=== PATIENT | female | born 1955 | race Caucasian/White ===

== ENCOUNTER 2016-09-17 19:04 | Observation (INO) | payer BC ==
[2016-09-17] MEDS ORDERED: ASPIRIN 81 MG CHEWABLE TAB PO ONE (19:07)
--- NOTE | 2016-09-17 19:18 | CPEKG ---
Heart Rate: 60 RR Interval: 1000 P-R Interval: 168 QRSD Interval: 96 QT Interval: 440 QTC Interval: 440 P [place]: 63 QRS [place]: 30 T Wave [place]: 34 EKG Severity - ABNORMAL ECG - EKG Impression: SINUS RHYTHM EKG Impression: PROBABLE LEFT ATRIAL ABNORMALITY EKG Impression: LEFT VENTRICULAR HYPERTROPHY Electronically Signed By: Albin Booker 17-Sep-2016 22:58:24
[2016-09-17 19:30] LABS: % IMMATURE GRANULYOCYTES 0.2 % (0.0-1.1); ABSOLUTE IMMATURE GRANULOCYTES 0.01 10^3/uL (0.00-0.10); ADD DIFF? NO; ADD MORPH? NO; ADD SCAN? NO; ATYPICAL LYMPHOCYTE FLAG 0 (0-99); FRAGMENT RBC FLAG 0 (0-99); HEMATOCRIT 39.9 % (38.0-47.0); HEMOGLOBIN 14.2 g/dL (12.6-16.3); LEFT SHIFT FLG 0 (0-99); LIPEMIA HEMOLYSIS FLAG 90 (0-99); MEAN CELL HEMOGLOBIN 32.6 pg (27.9-34.1); MEAN CELL HEMOGLOBIN CONCENTR. 35.6 g/dL (32.4-36.7); MEAN CELL VOLUME 91.7 fL (81.5-99.8); MEAN PLATELET VOLUME 8.2 fL (8.7-11.7); PLATELET CLUMPS FLAG 0 (0-99); PLATELET COUNT 261 10^3/uL (150-400); RED BLOOD CELL COUNT 4.35 10^6/uL (4.18-5.33); RED CELL DISTRIBUTION WIDTH 12.8 % (11.5-15.2)
[2016-09-17 19:43] LABS: INR 0.87 (0.83-1.16); PROTIME(PATIENT) 11.5 SEC (12.0-15.0)
[2016-09-17 19:44] LABS: ANION GAP 12 mEq/L (8-16); CALCIUM 8.9 mg/dL (8.5-10.4); CARBON DIOXIDE 27 mEq/l (22-31); CHLORIDE 90 mEq/L (97-110); CREATININE 0.6 mg/dL (0.6-1.0); GLOMERULAR FILTRATION RATE > 60; GLUCOSE 105 mg/dL (70-100); POTASSIUM 3.4 mEq/L (3.5-5.2); SODIUM 129 mEq/L (134-144)
[2016-09-17] MEDS ORDERED: NITROGLYCERIN 0.4 MG BTL SL ONE ×2 (19:55→19:56)
[2016-09-17 19:57] LABS: TROPONIN I < 0.012 ng/mL (0-0.034)
[2016-09-17] MEDS ORDERED: LORazepam 2 MG/ML INJ IVP ONE (20:18)
[2016-09-17] MEDS ORDERED: NS 1,000 ML IV ONE (20:20)
[2016-09-17] MEDS ORDERED: IOPAMIDOL (ISOVUE 370) 100 ML BTL IV ONE (20:23)
[2016-09-17] MEDS ORDERED: HEPARIN 10,000 UNIT/10 ML MDV IVP ONE (21:36)
--- NOTE | 2016-09-17 21:53 | UCPHY ---
H & P Patient Type: Established Chief Complaint Nursing Narrative: states she has a yeast infection that is squeezing her heart. sent from her winter sports manager for evaluation Time Seen by Provider: 09/17/16 19:07 HPI/ROS: This patient was brought over by Dr. Kirstin Mendosa her family practitioner [facility] for complaints of chest pain. She describes onset of symptoms 48 hours prior to arrival as a gripping in her chest, 7/10 peak intensity substernal and right-sided chest in location. Pain is sharp at times, nonradiating associated with mild shortness of breath. She describes the pain as stabbing at times. She has mild nausea associated with a but no vomiting. She states that she does not feel right. She is convinced that her symptoms are from a systemic yeast infection. She explains that she had thrush recently and is now convinced that she has a systemic yeast infection. ROS: No recent fevers or chills. No other constitutional symptoms. HEENT: No coryza. No other HEENT complaints. Pulmonary: There is a pleuritic component seems to her pain is worsens but with a deep breath. No respiratory distress. No hemoptysis. No recent coughing. Cardiovascular: She denies any heart palpitations currently though she reports that the night she had the onset of pain she felt well irregular and rapid heartbeat the last for several minutes and then resolved. No heart palpitations since that time. She denies any leg swelling or pain. GI: No abdominal pain except mild epigastric discomfort that waxes and wanes that she has had before. No clear exacerbating factors for the symptoms. She denies any GERD symptoms. : No complaints integumentary: No complaints endocrine: She reports long history of diaphoresis at night with no recent change in that. 10 point ROS is otherwise negative. Source: Patient Exam Limitations: No limitations - Personal History Tetanus Vaccine Date: within 10 years - Medical/Surgical History PMH: Hypertension Depression Hypothyroidism Hx Asthma: No Hx Chronic Respiratory Disease: No Hx Diabetes: No Hx Cardiac Disease: No Hx Renal Disease: No Hx Cirrhosis: No Hx Alcoholism: Yes Hx HIV/AIDS: No Hx Splenectomy or Spleen Trauma: No Other PMH: ADD, anxiety, gerd, htn - Family History Significant Family History: No pertinent family hx - Social History Smoking Status: Former smoker Alcohol Use: None Drug Use: None - Physical Exam Exam: Vitals are normal with exception of mild hypertension on arrival General Appearance: Alert, no distress. Eyes: Pupils equal and round no pallor or injection. ENT, Mouth: Mucous membranes moist. Respiratory: There are no retractions, lungs are clear to auscultation. No rales rhonchi or wheeze appreciated. She does seem to have increase in pain with a deep breath. Cardiovascular: Regular rate and rhythm. No murmur gallop rub. No JVD. No peripheral edema or leg tenderness Gastrointestinal: Abdomen is soft and nontender, no masses, bowel sounds normal. Neurological: Alert with no focal deficits. Skin: Warm and dry, no rashes. Musculoskeletal: Neck is supple nontender. Extremities are symmetrical, full range of motion. Psychiatric: Patient is anxious. She has a bit of a rambling historian. However she answers simple questions appropriately. She does not have pressured speech. DIFFERENTIAL DIAGNOSIS: After history and physical exam differential diagnosis was considered for [place], coronary syndrome, PE, pneumothorax, pneumonia, viral syndrome, pericarditis, GERD Constitutional: Initial Vital Signs Temperature (C) 36.7 C 09/17/16 19:05 Heart Rate 65 09/17/16 19:05 Respiratory Rate 18 09/17/16 19:05 Blood Pressure 165/107 H 09/17/16 19:05 O2 Sat (%) 96 09/17/16 19:05 O2 Delivery Mode Room Air Allergies/Adverse Reactions: atropine sulfate [From Lomotil] Allergy (Intermediate, Verified 06/08/16 10:34) Other-Enter Comments diphenoxylate HCl [From Lomotil] Allergy (Intermediate, Verified 06/08/16 10:34) Other-Enter Comments hydromorphone HCl [From Dilaudid] Allergy (Intermediate, Verified 06/08/16 10:34 ) neck gland swelling oxcarbazepine [From Trileptal] Allergy (Intermediate, Verified 06/08/16 10:34) Other-Enter Comments Sulfa (Sulfonamide Antibiotics) Allergy (Unknown, Verified 06/08/16 10:34) Other-Enter Comments Home Medications: Medication Instructions Recorded Effexor Unk Dose 04/07/16 Levothyroxine Unk Dose 04/07/16 Lisinopril Unk Dose 04/07/16 Trazadone Unk Dose 04/07/16 Cholestyramine Packet 05/03/16 KLONOPIN 05/03/16 Ondansetron Odt [Zofran Odt] 4 - 8 mg PO Q4PRN PRN #4 tab 06/01/16 Cyclobenzaprine [Flexeril] 10 mg PO TID #15 tab 06/08/16 Hydrocodone/APAP 5/325 [Palmer 1 - 2 tab PO Q4 #13 tab 06/08/16 5/325 (RX)] Medical Decision Making - Diagnostics EKG Interpretation: 12 lead EKG performed at 7:15 p.m. reveals sinus rhythm at 60 Intervals: Normal throughout [place]: P of 63, QRS of 30, T of [address] segments: Mild J-point elevation in the anterior leads and LVH by voltage criteria. Overall assessment sinus rhythm with LVH see trace master for complete read Imaging: Chest x-ray: Normal heart size, clear lung navarro by my interpretation. CT angio chest rule out PE reveals a small right-sided subsegmental pulmonary embolism per Dr. Sanderson-radiologist ED Course/Re-evaluation: Aspirin on arrival Supple nitroglycerin without significant change in discomfort Ativan for anxiety 1 mg IV Heparin protocol with initial bolus given for pulmonary embolism I counseled patient regarding her diagnosis. She is agreeable to admission to [facility]. With Dr. Roe concussion, hospitalist at [facility] accepts patient for transfer. Discussion: Patient with small pulmonary embolism without obvious risk factors for this. She is stable. I think that she is safe for a med surge admission on a phototypesetting equipment monitor. - Data Points Laboratory Results: Laboratory Results 09/17/16 19:24 09/17/16 19:24 09/17/16 09/17/16 09/17/16 19:24 19:24 19:24 WBC 6.35 10^3/uL 10^3/uL (3.80-9.50) RBC 4.35 10^6/uL 10^6/uL (4.18-5.33) Hgb 14.2 g/dL g/dL (12.6-16.3) Hct 39.9 % % (38.0-47.0) MCV 91.7 fL fL (81.5-99.8) MCH 32.6 pg pg (27.9-34.1) MCHC 35.6 g/dL g/dL (32.4-36.7) RDW 12.8 % % (11.5-15.2) Plt Count 261 10^3/uL 10^3/uL (150-400) MPV 8.2 fL L fL (8.7-11.7) Neut % (Auto) 58.0 % % (39.3-74.2) Lymph % (Auto) 33.4 % % (15.0-45.0) [place] % (Auto) 7.2 % % (4.5-13.0) Eos % (Auto) 0.9 % % (0.6-7.6) Baso % (Auto) 0.3 % % (0.3-1.7) Nucleat RBC Rel Count 0.0 % % (0.0-0.2) Absolute Neuts (auto) 3.68 10^3/uL 10^3/uL (1.70-6.50) Absolute Lymphs (auto) 2.12 10^3/uL 10^3/uL (1.00-3.00) Absolute Monos (auto) 0.46 10^3/uL 10^3/uL (0.30-0.80) Absolute Eos (auto) 0.06 10^3/uL 10^3/uL (0.03-0.40) Absolute Basos (auto) 0.02 10^3/uL 10^3/uL (0.02-0.10) Absolute Nucleated RBC 0.00 10^3/uL 10^3/uL (0-0.01) Immature Gran % 0.2 % % (0.0-1.1) Immature Gran # 0.01 10^3/uL 10^3/uL (0.00-0.10) PT 11.5 SEC L SEC (12.0-15.0) INR 0.87 (0.83-1.16) APTT 26.0 SEC SEC (23.0-38.0) D-Dimer 0.55 ug/mLFEU H ug/mLFEU (0.00-0.50) Sodium 129 mEq/L L mEq/L (134-144) Potassium 3.4 mEq/L L mEq/L (3.5-5.2) Chloride 90 mEq/L L mEq/L (97-110) Carbon Dioxide 27 mEq/l mEq/l (22-31) Anion Gap 12 mEq/L mEq/L (8-16) BUN 14 mg/dL mg/dL (7-23) Creatinine 0.6 mg/dL mg/dL (0.6-1.0) Estimated GFR > 60 Glucose 105 mg/dL H mg/dL (70-100) Calcium 8.9 mg/dL mg/dL (8.5-10.4) Troponin I < 0.012 ng/mL ng/mL (0-0.034) Medications Given: Discontinued Medications Aspirin (Aspirin) 324 mg PO EDNOW ONE Stop: 09/17/16 19:08 Last Admin: 09/17/16 19:20 Dose: 324 mg Sodium Chloride (Ns) 1,000 mls @ 0 mls/hr IV ONCE ONE PRN Reason: Wide Open Stop: 09/17/16 20:21 Last Admin: 09/17/16 20:30 Dose: 1,000 mls Lorazepam (Ativan Injection) 1 mg IVP EDNOW ONE Stop: 09/17/16 20:19 Last Admin: 09/17/16 20:32 Dose: 1 mg Nitroglycerin (Nitrostat) 0.4 mg SL EDNOW ONE Stop: 09/17/16 19:57 Last Admin: 09/17/16 19:57 Dose: 0.4 mg Departure - Departure Disposition: [facility] Clinical Impression: Pulmonary embolism Qualifiers: Pulmonary embolism type: other Chronicity: acute Acute cor pulmonale presence: without acute cor pulmonale Qualified Code(s): I26.99 - Other pulmonary embolism without acute cor pulmonale Condition: Fair - PQRS PQRS Measurement: NA
[2016-09-18] MEDS ORDERED: LORazepam 0.5 MG TAB PO PRN (00:19)
[2016-09-18] MEDS ORDERED: ONDANSETRON DISINTEGRATING 4 MG TAB PO PRN (00:19)
[2016-09-18] MEDS ORDERED: ACETAMINOPHEN 325 MG TAB PO PRN (00:19)
[2016-09-18] MEDS ORDERED: ALBUTEROL 3 ML DEYVIAL IH PRN (00:19)
[2016-09-18] MEDS ORDERED: ONDANSETRON 4 MG/2 ML VIAL IVP PRN (00:19)
[2016-09-18] MEDS ORDERED: APIXABAN 5 MG TAB PO SCH (02:00)
--- NOTE | 2016-09-18 04:26 | PDGENHP ---
History and Physical - Chief Complaint burning chest pain - History of Present Illness Patient was seen and evaluated prior to midnight; on 09/17/2016 Patient is a 60-year-old female with a history of hypertension, anxiety/ depression, cervical radiculopathy, hypothyroidism who presented to the [facility] with complaint of chest tightness/burning. Patient states she had been recently diagnosed with oral/esophageal candidiasis, completed a course of fluconazole about 10 days prior to presentation. She thought her current symptoms were a recurrence of that. For the past 2-3 days she reports experiencing a tightness in her mid chest/epigastrium that was worse with deep inhalation and not associated with dysphagia/odynophagia. In addition, she reports feeling increased dyspnea on exertion, insidious in onset over the past 2 weeks. She denies any obvious cough or congestion. She also denies any palpitations, dizziness, headache or n/v. On arrival to the [facility], patient was afebrile and hemodynamically stable. Labs revealed normal CBC and BMP, negative troponin, but positive D-dimer. CT angio was then obtained and revealed a right lower lobe subsegmental pulmonary embolism. EKG did not show any obvious ischemic changes. She was initiated on heparin bolus per protocol and transported to [facility] for admission. On further question, patient denies any recent prolonged immobilization, denies any recent travel, surgeries. She reports that her mother of a pulmonary embolism at the age of 66. Patient denies any prior history of DVT or PE. History Information - Allergies/Home Medication List Allergies/Adverse Reactions: atropine sulfate [From Lomotil] Allergy (Intermediate, Verified 06/08/16 10:34) Other-Enter Comments diphenoxylate HCl [From Lomotil] Allergy (Intermediate, Verified 06/08/16 10:34) Other-Enter Comments hydromorphone HCl [From Dilaudid] Allergy (Intermediate, Verified 06/08/16 10:34 ) neck gland swelling oxcarbazepine [From Trileptal] Allergy (Intermediate, Verified 06/08/16 10:34) Other-Enter Comments Sulfa (Sulfonamide Antibiotics) Allergy (Unknown, Verified 06/08/16 10:34) Other-Enter Comments Home Medications: Effexor Unk Dose 04/07/16 [Last Taken Unknown] Levothyroxine Unk Dose 04/07/16 [Last Taken Unknown] Lisinopril Unk Dose 04/07/16 [Last Taken Unknown] Trazadone Unk Dose 04/07/16 [Last Taken Unknown] Cholestyramine Packet 05/03/16 [Last Taken Unknown] KLONOPIN 05/03/16 [Last Taken Unknown] I have personally reviewed and updated: family history, medical history, social history, surgical history - Past Medical History Additional medical history: Cervical radiculopathy, C5-C7. Functional hypothyroidism s/p hot nodule resection. anxiety/depression. hypertension. ? h/o colitis - Surgical History Additional surgical history: thyroid nodule resection. ectopic - Family History Additional family history: M: at 66 from acute pulmonary embolism. F: CAD, ETOH abuse - Social History Smoking Status: Former smoker (quit 7 years ago) Alcohol Use: None Drug Use: None Additional social history: Patient lives with her , retired classical music negro; originally from [place]. Review of Systems ROS: 10pt was reviewed & negative except for what was stated in HPI & below Physical Exam Temp Pulse Resp BP Pulse Ox 36.6 C 65 14 162/88 H 99 09/17/16 23:51 09/17/16 23:51 09/17/16 23:51 09/17/16 23:51 09/17/16 23:51 O2 (L/minute) 2 Constitutional: no apparent distress, appears nourished, not in pain Eyes: PERRL, anicteric sclera, EOMI Ears, Nose, Mouth, Throat: moist mucous membranes, hearing normal, ears appear normal, no oral mucosal ulcers Cardiovascular: regular rate and rhythym, no murmur, rub, or gallop, pulses symmetric bilaterally, No JVD, No edema Peripheral Pulses: 2+: dorsalis-pedis (R), dorsalis-pedis (L) Respiratory: no respiratory distress, no rales or rhonchi, clear to auscultation Gastrointestinal: normoactive bowel sounds, soft, non-tender abdomen, no palpable masses, No guarding, No rebound, No distension Genitourinary: no bladder fullness, no bladder tenderness Skin: warm, normal color, no rashes or abrasions, no fluctuance, no induration, No mottled Musculoskeletal: full muscle strength, no muscle tenderness, normal joint ROM, no joint effusions Neurologic: AAOx3, sensation intact bilaterally, CN II-XII Intact, No weakness, No numbness, No pronator drift, No facial droop Psychiatric: interacting appropriately, not anxious, not encephalopathic, thought process linear Lab Data & Imaging Review 09/18/16 04:32 09/18/16 04:32 WBC 6.35 10^3/uL (3.80-9.50) 09/17/16 19:24 RBC 4.35 10^6/uL (4.18-5.33) 09/17/16 19:24 Hgb 14.2 g/dL (12.6-16.3) 09/17/16 19:24 Hct 39.9 % (38.0-47.0) 09/17/16 19:24 MCV 91.7 fL (81.5-99.8) 09/17/16 19:24 MCH 32.6 pg (27.9-34.1) 09/17/16 19:24 MCHC 35.6 g/dL (32.4-36.7) 09/17/16 19:24 RDW 12.8 % (11.5-15.2) 09/17/16 19:24 Plt Count 261 10^3/uL (150-400) 09/17/16 19:24 MPV 8.2 fL (8.7-11.7) L 09/17/16 19:24 Neut % (Auto) 58.0 % (39.3-74.2) 09/17/16 19:24 Lymph % (Auto) 33.4 % (15.0-45.0) 09/17/16 19:24 Will % (Auto) 7.2 % (4.5-13.0) 09/17/16 19:24 Eos % (Auto) 0.9 % (0.6-7.6) 09/17/16 19:24 Baso % (Auto) 0.3 % (0.3-1.7) 09/17/16 19:24 Nucleat RBC Rel Count 0.0 % (0.0-0.2) 09/17/16 19:24 Absolute Neuts (auto) 3.68 10^3/uL (1.70-6.50) 09/17/16 19:24 Absolute Lymphs (auto) 2.12 10^3/uL (1.00-3.00) 09/17/16 19:24 Absolute Monos (auto) 0.46 10^3/uL (0.30-0.80) 09/17/16 19:24 Absolute Eos (auto) 0.06 10^3/uL (0.03-0.40) 09/17/16 19:24 Absolute Basos (auto) 0.02 10^3/uL (0.02-0.10) 09/17/16 19:24 Absolute Nucleated RBC 0.00 10^3/uL (0-0.01) 09/17/16 19:24 Immature Gran % 0.2 % (0.0-1.1) 09/17/16 19:24 Immature Gran # 0.01 10^3/uL (0.00-0.10) 09/17/16 19:24 PT 11.5 SEC (12.0-15.0) L 09/17/16 19:24 INR 0.87 (0.83-1.16) 09/17/16 19:24 APTT 26.0 SEC (23.0-38.0) 09/17/16 19:24 D-Dimer 0.55 ug/mLFEU (0.00-0.50) H 09/17/16 19:24 Sodium 129 mEq/L (134-144) L 09/17/16 19:24 Potassium 3.4 mEq/L (3.5-5.2) L 09/17/16 19:24 Chloride 90 mEq/L (97-110) L 09/17/16 19:24 Carbon Dioxide 27 mEq/l (22-31) 09/17/16 19:24 Anion Gap 12 mEq/L (8-16) 09/17/16 19:24 BUN 14 mg/dL (7-23) 09/17/16 19:24 Creatinine 0.6 mg/dL (0.6-1.0) 09/17/16 19:24 Estimated GFR > 60 09/17/16 19:24 Glucose 105 mg/dL (70-100) H 09/17/16 19:24 Calcium 8.9 mg/dL (8.5-10.4) 09/17/16 19:24 Troponin I < 0.012 ng/mL (0-0.034) 09/17/16 19:24 Visualized and Interpreted Chest x-ray results: Yes Chest X-Ray results: no infiltrate, normal Visualized and Interpreted imaging results: Yes Interpretation: CT angio chest: small RLL subsegmental pulmonary embolism Visualized and Interpreted EKG results: Yes EKG Interpretation: Positive for: normal sinsus rhythm (no st/t wave abnormalities) Assessment & Plan Assessment: Patient is a 60-year-old female with history of hypertension, hypothyroidism and anxiety/ depression who presents to the [facility] with complaint of chest tightness and increasing dyspnea on exertion. Workup revealed acute subsegmental pulmonary embolism of the right lower lobe with no obvious provoking factor. Plan: # acute subsegmental PE Patient has no evidence of acute hypoxic respiratory failure, no evidence of tachycardia or tachypnea. EKG without any evidence of heart strain and troponin is negative. Will check Dopplers to assess for DVT, repeat EKG and TTE in a.m. Patient was initially started on heparin drip in [facility] prior to transport. However, given normal renal function, and after discussion at length with various anticoagulation options, patient is interested in continuing with Eliquis. Patient was transitioned to Eliquis after arrival here and will cont this per PE treatment protocol (10 mg BID x 7 days, then 5 mg bid). Patient does not report any obvious provoking factors for her PE and also reports a positive family history in her mother, underlying hypercoagulable state could exist. # chronic Hypertension BP mildly elevated on presentation. Will confirm and continue home meds. # Hypothyroidism Will check TSH and resume home synthoid. # anxiety/depression Appears stable. Will cont home med and provide ativan prn. # chronic cervical radiculopathy Stable, will provide pain meds prn. # dispo: admit under observation status #gen: cardiac diet DVT ppx: on eliquis Full code
[2016-09-18 05:32] LABS: % IMMATURE GRANULYOCYTES 0.2 % (0.0-1.1); ABSOLUTE IMMATURE GRANULOCYTES 0.01 10^3/uL (0.00-0.10); ADD DIFF? NO; ADD MORPH? NO; ADD SCAN? NO; ATYPICAL LYMPHOCYTE FLAG 0 (0-99); FRAGMENT RBC FLAG 0 (0-99); HEMOGLOBIN 13.7 g/dL (12.6-16.3); LEFT SHIFT FLG 0 (0-99); LIPEMIA HEMOLYSIS FLAG 90 (0-99); MEAN CELL HEMOGLOBIN 32.8 pg (27.9-34.1); MEAN CELL HEMOGLOBIN CONCENTR. 35.1 g/dL (32.4-36.7); MEAN CELL VOLUME 93.3 fL (81.5-99.8); MEAN PLATELET VOLUME 8.7 fL (8.7-11.7); PLATELET CLUMPS FLAG 0 (0-99); PLATELET COUNT 263 10^3/uL (150-400); RED BLOOD CELL COUNT 4.18 10^6/uL (4.18-5.33); RED CELL DISTRIBUTION WIDTH 13.1 % (11.5-15.2)
[2016-09-18 05:47] LABS: ANION GAP 6 mEq/L (8-16); CALCIUM 8.9 mg/dL (8.5-10.4); CARBON DIOXIDE 28 mEq/l (22-31); CHLORIDE 103 mEq/L (97-110); CREATININE 0.6 mg/dL (0.6-1.0); GLOMERULAR FILTRATION RATE > 60; GLUCOSE 82 mg/dL (70-100); MAGNESIUM 2.1 mg/dL (1.6-2.3); POTASSIUM 3.7 mEq/L (3.5-5.2); SODIUM 137 mEq/L (134-144)
[2016-09-18 05:53] LABS: TROPONIN I < 0.012 ng/mL (0-0.034)
[2016-09-18 05:57] LABS: INR 1.13 (0.83-1.16); PROTIME(PATIENT) 14.4 SEC (12.0-15.0)
[2016-09-18 05:58] LABS: APTT 30.4 SEC (23.0-38.0)
[2016-09-18 08:42] VITALS: PULSE 72
--- NOTE | 2016-09-18 08:56 | CPEKG ---
Heart Rate: 70 RR Interval: 857 P-R Interval: 168 QRSD Interval: 96 QT Interval: 392 QTC Interval: 423 P [place]: 75 QRS [place]: 68 T Wave [place]: -61 EKG Severity - ABNORMAL ECG - EKG Impression: sinus rhythm EKG Impression: NONSPECIFIC REPOL ABNORMALITY, LATERAL LEADS Electronically Signed By: Seng Ríos 18-Sep-2016 14:37:57
--- NOTE | 2016-09-18 10:34 | ECHO ---
[id number] + + [id number] : : [place] [address] : : [phone] + + Adult Echocardiographic Report + + :Name: GHULAM PEMBERTON JStudy Date: 09/18/2016 08:07 AM : : Hospital Admission Number: [id number] Loc ation: 347: :: 1955 Gender: Female Height: 66 in : :Age: 60 yrs Race: WH Weight: 133 lb : :Reason For Study: Pulmonary embolism/R/O cardiac strain : : BSA: 1.7 me ters2 : + + MMode/2D Measurements \T\ Calculations IVSd: 0.75 cm LVIDd: 5.0 cm EDV(Teich): Ao root diam: LVPWd: 0.74 cm 121.0 ml 4.0 cm LA dimension: 3.6 cm LVLd ap4: 7.5 cm SV(MOD-sp4): EDV(MOD-sp4): 37.0 ml 57.0 ml LVLs ap4: 5.9 cm ESV(MOD-sp4): 20.0 ml EF(MOD-sp4): 64.9 % Normal Measurement Values: + + :LVIDd (3.5-5.7cm) IVSd (0.6-1.1cm) LVPWd (0.6-1.1cm) Aortic Root (2.0-3.7cm)Left Atrium (1.5-4.0cm): :LV Vol(d) (76-115ml) LV Vol(s) (29-48ml) Ejec Fraction (50-65%)PV Chas (0.6- 1.2m/s) TV Chas (0.4-1.0m/s) : :MV E Chas (0.8-1.0m/s)MV A Chas (0.3-1.0m/s)LVOT Chas (0.7-1.2m/s) Asc Ao Chas ( 0.9-1.8m/s) : + + Doppler Measurements \T\ Calculations MV E max chas: 63.7 cm/sec Ao V2 max: 105.9 cm/sec TR max chas: 194.1 cm/sec MV A max chas: 56.8 cm/sec Ao max P.5 mmHg TR max P.1 mmHg MV E/A: 1.1 Ao mean P.0 mmHg RAP systole: 5.0 mmHg Ao V2 mean: 45.6 cm/sec RVSP(TR): 20.1 mmHg Ao V2 VTI: 1.4 cm Left Ventricle The left ventricle is normal in size. There is normal left ventricular wall thickness. Left ventricular systolic function is normal. Ejection Fraction = 65-70%. No regional wall motion abnormalities noted. Right Ventricle The right ventricle is normal in size and function. Atria The left atrial size is normal. Right atrial size is normal. Mitral Valve The mitral valve is normal in structure and function. There is no evidence of mitral valve prolapse. There is no mitral valve stenosis. There is mild mitral regurgitation. Tricuspid Valve Normal tricuspid valve. There is mild tricuspid regurgitation. Right ventricular systolic pressure is normal. Aortic Valve The aortic valve is trileaflet. The aortic valve opens well. There is no aortic stenosis. Trace aortic regurgitation. Pulmonic Valve The pulmonic valve is normal in structure and function. There is no pulmonic valvular regurgitation. Great Vessels The aortic root is normal size. Mildly dilated ascending aorta. Ascending aorta measures 4.2 cm. Pericardium/Pleural Trivial anterior pericardial effusion. Conclusion A complete two-dimensional transthoracic echocardiogram was performed (2D, M-mode, Doppler and color flow Doppler). Left ventricular systolic function is normal. Ejection Fraction = 65-70%. There is mild mitral regurgitation. There is mild tricuspid regurgitation. Right ventricular systolic pressure is normal. Trace aortic regurgitation. Mildly dilated ascending aorta. Ascending aorta measures 4.2 cm Trivial anterior pericardial effusion No prior echo Final Reading Physician: Dr Mikayla Lewis electronically signed on 09/18/2016 10:33 AM Ordering Physician: Rubi Magaña Performed By: Nahomy Velez, GLORIACS
[2016-09-18 11:49] VITALS: BP 162/84; RESP 18; TEMP 97.9; O2SAT 93
[2016-09-18] MEDS ORDERED: traMADol 50 MG TAB PO PRN (12:25)
[2016-09-18] MEDS ORDERED: clonazePAM 0.5 MG TAB PO PRN (12:25)
--- NOTE | 2016-09-18 16:43 | GDS ---
DISCHARGE DIAGNOSES: 1. Subsegmental pulmonary emboli. 2. Superficial lower extremity thrombus. 3. Chronic hypertension. 4. Hypothyroidism. 5. Anxiety with depression. STUDIES AND PROCEDURES DONE: 1. CT angio of the chest. 2. Echocardiogram. 3. Multiple EKGs. PHYSICAL EXAM: GENERAL: The patient is alert. VITAL SIGNS: Afebrile at 36.6, pulse 72, respirato ry rate is 18, blood pressure is 162/84, she is saturating 93% on room air. I have seen and evaluat ed the patient on the day of discharge. HOSPITAL COURSE: Ms. Valladares is a 60-year-old female, who presented to the urgent care with complaints of chest tightness and discomfort. She was evaluated and diagnosed with: 1. Acute subsegmental pulmonary emboli. During this hospitalization, she was treated with heparin. She has been transitioned to Eliquis. I provided the patient a prescription for this medication a nd instructed her how to take it. She will follow up in the outpatient setting with her primary car e physician. She is hemodynamically stable with no signs of acute respiratory involvement. 2. Chronic hypertension. The patient's blood pressure was elevated during this hospitalization. I have re-initiated her home medications and instructed her to follow up with her primary care physic soumya. I suspect there is a component of anxiety related with her hypertension at this time. We will not adjust her antihypertensive medications at the time of disposition. 3. Hypothyroidism. TSH is within normal limits and home medications have been re-initiated. 4. Hyponatremia. This has resolved. Was present upon admission. The patient did seem to be mildl y dehydrated and has responded to fluid resuscitation. 5. Anxiety with depression. This is baseline for the patient. DISPOSITION: The patient has been instructed to follow up with her primary care physician in the ne xt 1 to 2 days to assure her symptoms are continuing to improve. I have instructed her to return to the emergency room if she has any complications or her symptoms become worse. DISCHARGE MEDICATIONS: Please refer to EMR form. I have provided the patient a prescription for El iquis. She will take 10 mg p.o. twice daily for a total of 7 days and then 5 mg p.o. twice daily. Again, followup will be with her primary care physician, Dr. Angy Bang. /[id number]/MODL
[2016-09-19] MEDS ORDERED: LEVOTHYROXINE 100 MCG TAB PO SCH (06:00)
[2016-09-19] MEDS ORDERED: VENLAFAXINE XR 75 MG CAP PO SCH (09:00)
[2016-09-19] MEDS ORDERED: LISINOPRIL 5 MG TAB PO SCH (09:00)
[2016-09-19] MEDS ORDERED: BUDESONIDE 9 MG PO SCH (09:00)
== END 2016-09-18 13:09 | disposition home or self-care (01) ==
LOC: CED 19:04 → INTOOBSV 21:39 → CEDHOLD 21:39 → F3N 23:30
PROVIDERS: ADMIT Hospitalist; ATTEND Hospitalist
DX: I26.99 Other pulmonary embolism without acute cor pulmonale (principal); I82.812 Embolism and thrombosis of superficial veins of left lower extremity; I10 Essential (primary) hypertension; E03.9 Hypothyroidism, unspecified; F41.8 Other specified anxiety disorders; E87.1 Hypo-osmolality and hyponatremia; M54.12 Radiculopathy, cervical region; Z87.891 Personal history of nicotine dependence; I71.4 Abdominal aortic aneurysm, without rupture
CPT/HCPCS: 71020; 71275; 93005; 93306; 93970; 99213; G0378; 80048-PO; 84484-PO; 85025-PO; 85378-PO; 85610-PO; 85730-PO; 96374-PO; 96375-PO; G0463-PO; J1644; Q9967

== ENCOUNTER 2016-09-19 08:39 | Emergency (ER) | payer BC ==
--- NOTE | 2016-09-19 08:50 | UCPHY ---
H & P Patient Type: Established Time Seen by Provider: 09/19/16 08:46 HPI/ROS: CHIEF COMPLAINT: Suspected allergic reaction HISTORY OF PRESENT ILLNESS: This patient is a 60 year old woman, with recent diagnosis of oral thrush and DVT/PE two days ago, presenting with suspected allergic reaction. The patient had been on a three-month course of Uceris, a steroid medication, for treatment of colitis. She developed oral thrush two days ago and was prescribed Fluconazole. She was also diagnosed with DVT/PE two days ago, placed on Eliquis while in the hospital. After taking her medications this morning, she experienced acute hand swelling and throat irritation, described as "itchiness", and sensation of throat swelling. She took the Eliquis at 6:30am (2.5 hours ago) and the Fluconazole 10 minutes prior to symptom onset. She presented to the [facility] with concern that she is having an allergic reaction. Symptoms are moderate in severity. She denies difficulty breathing, chest discomfort, or rash. REVIEW OF SYSTEMS: A 10 point review of systems was performed and is negative with the exception of the elements mentioned in the history of present illness. Source: Patient Exam Limitations: No limitations - Personal History Tetanus Vaccine Date: within 10 years - Medical/Surgical History Hx Asthma: No Hx Chronic Respiratory Disease: No Hx Diabetes: No Hx Cardiac Disease: No Hx Renal Disease: No Hx Cirrhosis: No Hx Alcoholism: Yes Hx HIV/AIDS: No Hx Splenectomy or Spleen Trauma: No Other PMH: ADD, anxiety, gerd, htn, Colitis, recent diagnosis of DVT and PE - Family History Significant Family History: No pertinent family hx - Social History Smoking Status: Former smoker (quit 7 years ago) Additional Social History: She is a . She is a negro and has her masters degree in music from [employer]. - Physical Exam Exam: General Appearance: Alert, no acute distress. Blood pressure 136/89. Eyes: Pupils equal and round, no conjunctival injection, no discharge. ENT, Mouth: Mucous membranes are moist, there is mild uvular edema without uvular deviation, no oropharyngeal erythema. She is managing her secretions well. Neck: No lymphadenopathy, supple. Trachea midline. Respiratory: Lungs are clear to auscultation; no wheezes, rales, or rhonchi. Cardiovascular: Regular rate and rhythm; no murmur, rub, or gallop. Gastrointestinal: Abdomen is soft and nontender, no masses or organomegaly, bowel sounds normal. Skin: Warm and dry, no rashes, normal color. No urticaria. Extremities: No lower extremity edema, no calf tenderness or swelling. Neurological: Alert and oriented. Moving all four extremities easily and equally. Psychiatric: Normal affect. Constitutional: Initial Vital Signs Temperature (C) 36.9 C 09/19/16 09:30 Heart Rate 68 09/19/16 09:30 Respiratory Rate 18 09/19/16 09:30 Blood Pressure 136/89 H 09/19/16 09:30 O2 Sat (%) 96 09/19/16 09:30 O2 Delivery Mode Room Air Allergies/Adverse Reactions: atropine sulfate [From Lomotil] Allergy (Intermediate, Verified 09/19/16 09:46) Other-Enter Comments diphenoxylate HCl [From Lomotil] Allergy (Intermediate, Verified 09/19/16 09:46) Other-Enter Comments hydromorphone HCl [From Dilaudid] Allergy (Intermediate, Verified 09/19/16 09:46 ) neck gland swelling oxcarbazepine [From Trileptal] Allergy (Intermediate, Verified 09/19/16 09:46) Other-Enter Comments Sulfa (Sulfonamide Antibiotics) Allergy (Unknown, Verified 09/19/16 09:46) Other-Enter Comments fluconazole [From Diflucan] Allergy (Verified 09/19/16 09:47) Home Medications: Medication Instructions Recorded Acetaminophen [Tylenol 325mg (*)] 650 mg PO Q4HRS PRN #0 tab 09/18/16 Apixaban [Eliquis] 5 mg PO BID #60 tablet 09/18/16 Apixaban [Eliquis] 10 mg PO Q12H #12 tab 09/18/16 Levothyroxine [Synthroid 100 mcg 100 mcg PO DAILY06 09/18/16 (*)] Lisinopril [Zestril 5 mg (*)] 5 mg PO DAILY 09/18/16 Venlafaxine Xr [Effexor Xr 75MG 75 mg PO DAILY 09/18/16 (*)] clonazePAM [Klonopin (*)] 0.5 mg PO DAILY PRN 09/18/16 traMADol [Ultram 50 mg (*)] 50 mg PO DAILY PRN 09/18/16 traZODone [traZODone 150MG (*)] 75 mg PO HS 09/18/16 Dabigatran Etexilate Mesyl 150 mg PO BID #60 cap 09/19/16 [Pradaxa 150 MG (*)] EPINEPHRINE [EPIPEN] 0.3 mg IM ONCE #2 syr 09/19/16 Medical Decision Making ED Course/Re-evaluation: This patient presents with acute allergic reaction, onset this morning after taking two new medications (Eliquis and Fluconazole). She complains of throat irritation and hand swelling. There is mild uvular edema on exam. Lungs are clear to auscultation, she is in no respiratory distress. Heart rate is regular in rate and rhythm. There is no urticaria on exam. An IV has been established and the patient has been placed on monitoring analyst. I have ordered 50mg IV Benadryl, 50mg IV Ranitidine, and 125mg IV methylprednisolone. The patient declines methylprednisolone because it causes her to be manic. 0940: Re-evaluation. The patient's throat irritation has improved. Her lungs remain clear to auscultation. The patient does complain of restless leg syndrome after receiving the medications. She requests a dose of Klonopin, which is one of her regularly prescribed medications. She now agrees to a dose of methylprednisolone. She does not want to take a steroid regularly and a prescription is not being written. 1015: I have consulted with Dr. Angy Thomason, patient's PCP, about the patient 's medications in the setting of allergic reaction. She recommends switching from Eliquis to Pradaxa and discontinue the Fluconazole. She will see the patient in follow up next week. Her lungs remain clear. Oropharynx is without advancement of uvular swelling. She continues to manage her secretions easily. I feel that she can safely return home. Differential Diagnosis: The differential diagnosis included but was not limited to angioedema, anaphylaxis, anaphylactoid reaction, or urticarial reaction. - Data Points Medications Given: Discontinued Medications Clonazepam (Klonopin) 1 mg PO EDNOW ONE Stop: 09/19/16 09:56 Last Admin: 09/19/16 10:10 Dose: 1 mg Diphenhydramine HCl (Benadryl Injection) 50 mg IVP EDNOW ONE Stop: 09/19/16 08:56 Last Admin: 09/19/16 09:00 Dose: 50 mg Diphenhydramine HCl (Benadryl Injection) 50 mg IVP EDNOW ONE Stop: 09/19/16 09:00 Last Admin: 09/19/16 09:28 Dose: Not Given Sodium Chloride (Ns) 1,000 mls @ 0 mls/hr IV ONCE ONE PRN Reason: Wide Open Stop: 09/19/16 09:51 Last Admin: 09/19/16 09:00 Dose: 1,000 mls Methylprednisolone Sodium Succinate (Solu-Medrol) 125 mg IVP EDNOW ONE Stop: 09/19/16 09:00 Last Admin: 09/19/16 09:26 Dose: Not Given Methylprednisolone Sodium Succinate (Solu-Medrol) 125 mg IVP EDNOW ONE Stop: 09/19/16 09:58 Last Admin: 09/19/16 10:10 Dose: 125 mg Ondansetron HCl (Zofran) 4 mg IVP EDNOW ONE Stop: 09/19/16 11:39 Last Admin: 09/19/16 09:15 Dose: 4 mg Ranitidine HCl (Zantac) 50 mg IV EDNOW ONE Stop: 09/19/16 08:56 Last Admin: 09/19/16 09:05 Dose: 50 mg Departure - Departure Disposition: Home, Routine, Self-Care Clinical Impression: Allergic reaction caused by a drug Qualifiers: Encounter type: initial encounter Qualified Code(s): T78.40XA - Allergy, unspecified, initial encounter Condition: Good Instructions: General Allergic Reaction (ED) Additional Instructions: Discontinue the Eliquis and the Fluconazole. Start taking Pradaxa instead for anticoagulant medication. Follow-up with your primary doctor to review your medications and follow up this week. Follow up with your vocational psychologist this week as well. Use [id number] Benadryl or Claritin and Ranitidine for anti-histamine. Return to the [facility] or seek care from an Emergency Department for shortness of breath, difficulty swallowing, difficulty breathing , worsening of rash, fever or other worsening of condition. Use Epi-Pen in case of allergic emergency. Referrals: Angy Bang MD [Primary Care Provider] - As per Instructions Prescriptions: Dabigatran Etexilate Mesyl [Pradaxa 150 MG (*)] 150 mg PO BID #60 cap EPINEPHRINE [EPIPEN] 0.3 mg IM ONCE #2 syr - PQRS PQRS Measurement: Not applicable. Report Scribed for: Steff Jackson Report Scribed by: Nikki Deleon Date of Report: 09/19/16 Time of Report: 09:05
[2016-09-19] MEDS ORDERED: RANITIDINE 50 MG/2 ML VIAL IV ONE (08:55)
[2016-09-19] MEDS ORDERED: methylPREDNISolone SOD SUCC 125 MG/2 ML VIAL IVP ONE ×2 (08:59→09:57)
[2016-09-19] MEDS ORDERED: ONDANSETRON 4 MG/2 ML VIAL ONE (09:10)
[2016-09-19 09:46] VITALS: TEMP 98.4; O2SAT 96
[2016-09-19] MEDS ORDERED: NS 1,000 ML IV ONE (09:50)
[2016-09-19] MEDS ORDERED: clonazePAM 1 MG TAB PO ONE (09:55)
[2016-09-19 11:35] VITALS: BP 148/82; PULSE 69; RESP 16
[2016-09-19] MEDS ORDERED: ONDANSETRON 4 MG/2 ML VIAL IVP ONE (11:38)
== END 2016-09-19 11:27 | disposition home or self-care (01) ==
LOC: CED 08:39
DX: T78.40XA Allergy, unspecified, initial encounter (principal); Z79.01 Long term (current) use of anticoagulants; Z86.718 Personal history of other venous thrombosis and embolism; Z87.891 Personal history of nicotine dependence
CPT/HCPCS: 96361-PO; 96374-PO; 96375-PO; G0463-PO; J2405; J2780

== ENCOUNTER 2016-10-08 14:17 | Observation (INO) | payer BC ==
--- NOTE | 2016-10-08 14:49 | CPEKG ---
Heart Rate: 57 RR Interval: 1053 P-R Interval: 172 QRSD Interval: 94 QT Interval: 424 QTC Interval: 413 P [place]: 66 QRS [place]: 35 T Wave [place]: 52 EKG Severity - NORMAL ECG - EKG Impression: SINUS RHYTHM Electronically Signed By: Pee Cardenas 08-Oct-2016 15:48:28
[2016-10-08 14:53] LABS: % IMMATURE GRANULYOCYTES 0.2 % (0.0-1.1); ABSOLUTE IMMATURE GRANULOCYTES 0.01 10^3/uL (0.00-0.10); ADD DIFF? NO; ADD MORPH? NO; ADD SCAN? NO; ATYPICAL LYMPHOCYTE FLAG 20 (0-99); FRAGMENT RBC FLAG 0 (0-99); HEMATOCRIT 39.9 % (38.0-47.0); HEMOGLOBIN 13.9 g/dL (12.6-16.3); LEFT SHIFT FLG 0 (0-99); LIPEMIA HEMOLYSIS FLAG 90 (0-99); MEAN CELL HEMOGLOBIN 32.4 pg (27.9-34.1); MEAN CELL HEMOGLOBIN CONCENTR. 34.8 g/dL (32.4-36.7); MEAN PLATELET VOLUME 8.8 fL (8.7-11.7); PLATELET CLUMPS FLAG 0 (0-99); PLATELET COUNT 267 10^3/uL (150-400); RED BLOOD CELL COUNT 4.29 10^6/uL (4.18-5.33); RED CELL DISTRIBUTION WIDTH 12.9 % (11.5-15.2)
[2016-10-08 15:04] LABS: ANION GAP 10 mEq/L (8-16); CALCIUM 9.2 mg/dL (8.5-10.4); CARBON DIOXIDE 26 mEq/l (22-31); CHLORIDE 98 mEq/L (97-110); CREATININE 0.6 mg/dL (0.6-1.0); GLOMERULAR FILTRATION RATE > 60; GLUCOSE 108 mg/dL (70-100); POTASSIUM 3.8 mEq/L (3.5-5.2); SODIUM 134 mEq/L (134-144)
--- NOTE | 2016-10-08 15:10 | EDPHY ---
H & P Stated Complaint: chest discomfort for 24 hours Time Seen by Provider: 10/08/16 14:33 HPI/ROS: CHIEF COMPLAINT: Intermittent chest pain HISTORY OF PRESENT ILLNESS: The patient presents to the ED with intermittent chest pain for the past 24 hours. She reports a sensation of a "clutching" in her left substernal chest. It lasted approximately 30 seconds then resolves. Patient was hospitalized for similar chest pain approximately 2 weeks ago and diagnosed with a PE. She has been on anticoagulation since that time. 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 She was referred to the emergency department she is continuing to have episodic intermittent chest pain. The patient denies asymmetric calf pain or swelling. The patient denies fever, cough or congestion. She denies history of exertional chest pain or shortness of breath. She denies additional acute complaints. REVIEW OF SYSTEMS: A comprehensive 10 point review of systems is otherwise negative aside from elements mentioned in the history of present illness. Source: Patient Exam Limitations: No limitations - Personal History Current Tetanus/Diphtheria Vaccine: Yes Current Tetanus Diphtheria and Acellular Pertussis (TDAP): Yes Tetanus Vaccine Date: within 10 years - Medical/Surgical History Hx Asthma: No Hx Chronic Respiratory Disease: No Hx Diabetes: No Hx Cardiac Disease: No Hx Renal Disease: No Hx Cirrhosis: No Hx Alcoholism: Yes Hx HIV/AIDS: No Hx Splenectomy or Spleen Trauma: No Other PMH: ADD, anxiety, gerd, htn, Colitis, recent diagnosis of DVT and PE, aortic aneurysm - Social History Smoking Status: Former smoker Alcohol Use: None Drug Use: None - Physical Exam Exam: General Appearance: Alert, no distress Eyes: Pupils equal and round no pallor or injection ENT, Mouth: Mucous membranes moist Respiratory: There are no retractions, lungs are clear to auscultation Cardiovascular: Regular rate and rhythm Gastrointestinal: Abdomen is soft and nontender, no masses, bowel sounds normal Neurological: A&O, normal motor function, normal sensory exam, normal cranial nerves Skin: Warm and dry, no rashes Musculoskeletal: Neck is supple nontender Extremities: symmetrical, full range of motion Constitutional: Initial Vital Signs Temperature (C) 36.7 C 10/08/16 14:26 Heart Rate 62 10/08/16 14:26 Respiratory Rate 18 10/08/16 14:26 Blood Pressure 141/84 H 10/08/16 14:26 O2 Sat (%) 93 10/08/16 14:26 O2 Delivery Mode Room Air Allergies/Adverse Reactions: atropine sulfate [From Lomotil] Allergy (Intermediate, Verified 10/08/16 14:25) Other-Enter Comments diphenoxylate HCl [From Lomotil] Allergy (Intermediate, Verified 10/08/16 14:25) Other-Enter Comments hydromorphone HCl [From Dilaudid] Allergy (Intermediate, Verified 10/08/16 14:25 ) neck gland swelling oxcarbazepine [From Trileptal] Allergy (Intermediate, Verified 10/08/16 14:25) Other-Enter Comments Sulfa (Sulfonamide Antibiotics) Allergy (Unknown, Verified 10/08/16 14:25) Other-Enter Comments fluconazole [From Diflucan] Allergy (Verified 10/08/16 14:25) Home Medications: Medication Instructions Recorded Acetaminophen [Tylenol 325mg (*)] 650 mg PO Q4HRS PRN #0 tab 09/18/16 Apixaban [Eliquis] 5 mg PO BID #60 tablet 09/18/16 Apixaban [Eliquis] 10 mg PO Q12H #12 tab 09/18/16 Levothyroxine [Synthroid 100 mcg 100 mcg PO DAILY06 09/18/16 (*)] Lisinopril [Zestril 5 mg (*)] 5 mg PO DAILY 09/18/16 Venlafaxine Xr [Effexor Xr 75MG 75 mg PO DAILY 09/18/16 (*)] clonazePAM [Klonopin (*)] 0.5 mg PO DAILY PRN 09/18/16 traMADol [Ultram 50 mg (*)] 50 mg PO DAILY PRN 09/18/16 traZODone [traZODone 150MG (*)] 75 mg PO HS 09/18/16 EPINEPHRINE [EPIPEN] 0.3 mg IM ONCE #2 syr 09/19/16 Medical Decision Making - Diagnostics EKG Interpretation: EKG: Complete interpretation has been separately recorded in the [facility] archive. Summary impression: Sinus rhythm, no acute ischemic changes ED Course/Re-evaluation: The patient presents the ED with 24 hours of intermittent chest pain. The chest pain is certainly atypical in nature however there is not another clear explanation for the cause of the pain. I did discuss her case with Dr. Mikayla Lewis from Cardiology who recommends admission to the hospital for serial cardiac enzymes this evening. They will likely perform a stress test on the patient in the morning. Cardiology is aware of the patient's admission to the hospital. Consultation is made with Dr. Cara Medel from the hospitalist service who will admit the patient to the [facility] this evening. The patient's initial troponin continues to be normal. The patient had no evidence of an obvious arrhythmia while being monitored in the emergency department. Differential Diagnosis: Differential diagnosis considered includes pulmonary infarct, arrhythmia, pericarditis, myocarditis, myocardial infarction - Data Points Laboratory Results: Laboratory Results 10/08/16 14:45 10/08/16 14:45 10/08/16 10/08/16 14:45 14:45 WBC 6.65 10^3/uL 10^3/uL (3.80-9.50) RBC 4.29 10^6/uL 10^6/uL (4.18-5.33) Hgb 13.9 g/dL g/dL (12.6-16.3) Hct 39.9 % % (38.0-47.0) MCV 93.0 fL fL (81.5-99.8) MCH 32.4 pg pg (27.9-34.1) MCHC 34.8 g/dL g/dL (32.4-36.7) RDW 12.9 % % (11.5-15.2) Plt Count 267 10^3/uL 10^3/uL (150-400) MPV 8.8 fL fL (8.7-11.7) Neut % (Auto) 58.8 % % (39.3-74.2) Lymph % (Auto) 31.9 % % (15.0-45.0) [place] % (Auto) 7.1 % % (4.5-13.0) Eos % (Auto) 1.2 % % (0.6-7.6) Baso % (Auto) 0.8 % % (0.3-1.7) Nucleat RBC Rel Count 0.0 % % (0.0-0.2) Absolute Neuts (auto) 3.92 10^3/uL 10^3/uL (1.70-6.50) Absolute Lymphs (auto) 2.12 10^3/uL 10^3/uL (1.00-3.00) Absolute Monos (auto) 0.47 10^3/uL 10^3/uL (0.30-0.80) Absolute Eos (auto) 0.08 10^3/uL 10^3/uL (0.03-0.40) Absolute Basos (auto) 0.05 10^3/uL 10^3/uL (0.02-0.10) Absolute Nucleated RBC 0.00 10^3/uL 10^3/uL (0-0.01) Immature Gran % 0.2 % % (0.0-1.1) Immature Gran # 0.01 10^3/uL 10^3/uL (0.00-0.10) Sodium 134 mEq/L mEq/L (134-144) Potassium 3.8 mEq/L mEq/L (3.5-5.2) Chloride 98 mEq/L mEq/L (97-110) Carbon Dioxide 26 mEq/l mEq/l (22-31) Anion Gap 10 mEq/L mEq/L (8-16) BUN 18 mg/dL mg/dL (7-23) Creatinine 0.6 mg/dL mg/dL (0.6-1.0) Estimated GFR > 60 Glucose 108 mg/dL H mg/dL (70-100) Calcium 9.2 mg/dL mg/dL (8.5-10.4) Troponin I < 0.012 ng/mL ng/mL (0-0.034) Medications Given: Discontinued Medications Morphine Sulfate (Morphine) 2 mg IVP EDNOW ONE Stop: 10/08/16 14:57 Last Admin: 10/08/16 14:57 Dose: 2 mg Departure - Departure Disposition: [facility] Inpatient Acute Clinical Impression: Chest pain Condition: Good Referrals: Angy Bang MD [Primary Care Provider] - As per Instructions
[2016-10-08 15:15] LABS: TROPONIN I < 0.012 ng/mL (0-0.034)
[2016-10-08] MEDS ORDERED: LORazepam 2 MG/ML INJ ONE (16:07)
[2016-10-08] MEDS ORDERED: NITROGLYCERIN 0.4 MG BTL SL PRN (16:14)
[2016-10-08] MEDS ORDERED: ONDANSETRON DISINTEGRATING 4 MG TAB PO PRN (16:14)
[2016-10-08] MEDS ORDERED: LORazepam 0.5 MG TAB PO PRN (16:14)
[2016-10-08] MEDS ORDERED: traMADol 50 MG TAB PO PRN (16:19)
[2016-10-08] MEDS ORDERED: clonazePAM 0.5 MG TAB PO PRN (16:19)
[2016-10-08] MEDS ORDERED: ACETAMINOPHEN 325 MG TAB PO PRN (16:19)
--- NOTE | 2016-10-08 16:40 | PDEACUHP ---
History and Physical - Chief Complaint chest pressure - History of Present Illness 60 yo F with PMH of anxiety/depression and hypertension as well as recent dx of subsegmental PE presenting from Cardiologists office (Dr. Mikayla Lewis) with chest pain for the last 24 hours. She notes it is very similar to the pain she had when she was diagnosed with PE. It occurs randomly, without precipitating factors, and lasts about 30 seconds. She describes it as "clutching" in nature, and now seems to be somewhat higher than her heart. She notes she also has had the sense that her heart was beating irregularly and notes she has had that a long time and assumed that everyone had that feeling. She states these sxs differ from when she had her PE somewhat, in that at that time she felt an "electrical gyration" in her chest. She does at times feel as if something is moving in her chest now as well, but it is different. Other than the palpitations and the pain she had with her PE, she has not had chest pain previously. She was sent to Dr. Lewis's office today from her PCP who was concerned about her sxs as well as concerned that her ECG was different than prior. She has not had cough, fever, chills, sob or other associated sxs. She does note that she is very anxious and wonders how much anxiety is contributing to her current sxs, she is requesting medicine for anxiety rather than for pain which she feels is mild. History Information - Allergies/Home Medication List Allergies/Adverse Reactions: atropine sulfate [From Lomotil] Allergy (Intermediate, Verified 10/08/16 14:25) Other-Enter Comments diphenoxylate HCl [From Lomotil] Allergy (Intermediate, Verified 10/08/16 14:25) Other-Enter Comments hydromorphone HCl [From Dilaudid] Allergy (Intermediate, Verified 10/08/16 14:25 ) neck gland swelling oxcarbazepine [From Trileptal] Allergy (Intermediate, Verified 10/08/16 14:25) Other-Enter Comments Sulfa (Sulfonamide Antibiotics) Allergy (Unknown, Verified 10/08/16 14:25) Other-Enter Comments fluconazole [From Diflucan] Allergy (Verified 10/08/16 14:25) Home Medications: Levothyroxine [Synthroid 100 mcg (*)] 100 mcg PO DAILY06 09/18/16 [Last Taken ] Lisinopril [Zestril 5 mg (*)] 10 mg PO DAILY 09/18/16 [Last Taken 10/08/16] Venlafaxine Xr [Effexor Xr 75MG (*)] 75 mg PO DAILY 09/18/16 [Last Taken ] clonazePAM [Klonopin (*)] 0.5 mg PO DAILY PRN 09/18/16 [Last Taken 10/07/16] traMADol [Ultram 50 mg (*)] 50 mg PO BID PRN 09/18/16 [Last Taken 10/08/16] traZODone [traZODone 150MG (*)] 75 mg PO HS 09/18/16 [Last Taken 10/07/16] Apixaban [Eliquis] 5 mg PO BID@0630,1830 10/08/16 [Last Taken 10/08/16 06:30 5 MG] EPINEPHRINE [EPIPEN] 0.3 mg IM ONCE PRN 10/08/16 [Last Taken Unknown] I have personally reviewed and updated: family history, medical history, social history, surgical history - Past Medical History DVT, hypertension, pulmonary embolism, psychiatric history (anxiety/depression) Additional medical history: Cervical radiculopathy, C5-C7. Functional hypothyroidism s/p hot nodule resection. anxiety/depression. hypertension. microscopic colitis - Surgical History Additional surgical history: thyroid nodule resection. ectopic - Family History Additional family history: M: at 66 from acute pulmonary embolism. F: CAD, ETOH abuse - Social History Smoking Status: Former smoker (quit in 2013, prior was intermittent light smoker ) Alcohol Use: None (previous etoh abuse, now sober many years) Drug Use: None Additional social history: Patient lives with her , retired classical music negro; originally from [place]. Review of Systems ROS: 10pt was reviewed & negative except for what was stated in HPI & below Physical Exam Temp Pulse Resp BP Pulse Ox 36.7 C 62 18 141/84 H 93 10/08/16 14:26 10/08/16 14:26 10/08/16 14:26 10/08/16 14:26 10/08/16 14:26 Constitutional: no apparent distress, appears nourished Eyes: PERRL, anicteric sclera Ears, Nose, Mouth, Throat: moist mucous membranes, hearing normal Cardiovascular: regular rate and rhythym, no murmur, rub, or gallop, No systolic murmur, No edema Respiratory: no respiratory distress, no rales or rhonchi, clear to auscultation Gastrointestinal: normoactive bowel sounds, soft, non-tender abdomen, No guarding, No rebound Genitourinary: no bladder fullness Skin: warm, normal color Musculoskeletal: full muscle strength, no muscle tenderness Neurologic: AAOx3 Psychiatric: interacting appropriately, depressed Lab Data & Imaging Review 10/08/16 14:45 10/08/16 14:45 WBC 6.65 10^3/uL (3.80-9.50) 10/08/16 14:45 RBC 4.29 10^6/uL (4.18-5.33) 10/08/16 14:45 Hgb 13.9 g/dL (12.6-16.3) 10/08/16 14:45 Hct 39.9 % (38.0-47.0) 10/08/16 14:45 MCV 93.0 fL (81.5-99.8) 10/08/16 14:45 MCH 32.4 pg (27.9-34.1) 10/08/16 14:45 MCHC 34.8 g/dL (32.4-36.7) 10/08/16 14:45 RDW 12.9 % (11.5-15.2) 10/08/16 14:45 Plt Count 267 10^3/uL (150-400) 10/08/16 14:45 MPV 8.8 fL (8.7-11.7) 10/08/16 14:45 Neut % (Auto) 58.8 % (39.3-74.2) 10/08/16 14:45 Lymph % (Auto) 31.9 % (15.0-45.0) 10/08/16 14:45 [place] % (Auto) 7.1 % (4.5-13.0) 10/08/16 14:45 Eos % (Auto) 1.2 % (0.6-7.6) 10/08/16 14:45 Baso % (Auto) 0.8 % (0.3-1.7) 10/08/16 14:45 Nucleat RBC Rel Count 0.0 % (0.0-0.2) 10/08/16 14:45 Absolute Neuts (auto) 3.92 10^3/uL (1.70-6.50) 10/08/16 14:45 Absolute Lymphs (auto) 2.12 10^3/uL (1.00-3.00) 10/08/16 14:45 Absolute Monos (auto) 0.47 10^3/uL (0.30-0.80) 10/08/16 14:45 Absolute Eos (auto) 0.08 10^3/uL (0.03-0.40) 10/08/16 14:45 Absolute Basos (auto) 0.05 10^3/uL (0.02-0.10) 10/08/16 14:45 Absolute Nucleated RBC 0.00 10^3/uL (0-0.01) 10/08/16 14:45 Immature Gran % 0.2 % (0.0-1.1) 10/08/16 14:45 Immature Gran # 0.01 10^3/uL (0.00-0.10) 10/08/16 14:45 Sodium 134 mEq/L (134-144) 10/08/16 14:45 Potassium 3.8 mEq/L (3.5-5.2) 10/08/16 14:45 Chloride 98 mEq/L (97-110) 10/08/16 14:45 Carbon Dioxide 26 mEq/l (22-31) 10/08/16 14:45 Anion Gap 10 mEq/L (8-16) 10/08/16 14:45 BUN 18 mg/dL (7-23) 10/08/16 14:45 Creatinine 0.6 mg/dL (0.6-1.0) 10/08/16 14:45 Estimated GFR > 60 10/08/16 14:45 Glucose 108 mg/dL (70-100) H 10/08/16 14:45 Calcium 9.2 mg/dL (8.5-10.4) 10/08/16 14:45 Troponin I < 0.012 ng/mL (0-0.034) 10/08/16 14:45 Visualized and Interpreted EKG results: Yes EKG Interpretation: Positive for: normal sinsus rhythm EKG additional interpertation: no ischemic changes, when compared to 09/17/16 no significant change Assessment & Plan Assessment: Chest pain (Acute) 60 yo F w/pmh htn, anxiety, recent dx of PE admitted with CP Plan: # chest pain: atypical in nature, has been going on greater than 24 hours with initial ecg negative making ACS highly unlikely. Cardiology requesting medical observation overnight, serial trops/serial ecg and nuc stress in am. Will obtain CXR, monitor on tele, serial trops and stress in am. Cardiology will see patient likely in am. # recent PE: continued on AC with eliquis, not hypoxic and doubt that chest pain related to treatment failure. will continue AC, if becomes hypoxic or other concerns arise could work up further at that point. # anxiety: certainly contributing to her presenting issues. Chronically on klonopin at home, will tx with ativan for exacerbation of anxiety. Unclear if precipitated by her chest pain or the other way around # htn: patient on lisinopril with recent plans to increase her dose per her report, will monitor on current dosing for now # microscopic colitis: she notes this was treated in [place] and no longer an issue # dispo: observation status, likely dc in am so long as stress test negative Patient new to my care. Old records reviewed and summarized as above. Care plan reviewed with ER doctor including plans for stress test in am.
--- NOTE | 2016-10-08 20:07 | CPEKG ---
Heart Rate: 62 RR Interval: 968 P-R Interval: 172 QRSD Interval: 100 QT Interval: 424 QTC Interval: 431 P [place]: 66 QRS [place]: 34 EKG Severity - ABNORMAL ECG - EKG Impression: SINUS RHYTHM EKG Impression: ABNORMAL T, PROBABLE ISCHEMIA, ANT-LAT LEADS Electronically Signed By: Miguel Gu 09-Oct-2016 06:51:55
[2016-10-08] MEDS: APIXABAN 5 MG TAB PO SCH (20:22)
[2016-10-09] MEDS ORDERED: LEVOTHYROXINE 100 MCG TAB PO SCH (06:00)
[2016-10-09] MEDS ORDERED: LISINOPRIL 10 MG TAB PO SCH (09:00)
[2016-10-09] MEDS ORDERED: ASPIRIN 325 MG TAB PO SCH (09:00)
[2016-10-09] MEDS ORDERED: VENLAFAXINE XR 75 MG CAP PO SCH (09:00)
--- NOTE | 2016-10-09 10:09 | PDCARST ---
CAR Stress Test Results Type of Stress Test: Nuclear TM stress test Indication: chest pain Description of Procedure: After informed consent was obtained, pt was established to ECG, BP, HR, oximetry monitoring. At b/l, has has SR with likely LVH and diffuse ST-T wave abnormality, BP 144/74, HR 79 and normal oximetry. With exercise, pt had 1 mm horizontal STD with Twi. Peak BP 184/90. Patient achieved HR of 149, which is 95% of MPHR based on age. She had no cp. Oximetry remained wnl. No arrhythmias. Impression: Worsening baseline ECG abnormalities with exertion. Overall good exercise tolerance as patient exercised 7:20 on Leonel protocol. Mild baseline htn with normal BP response to exercise. Conclusion: Await nuclear images.
--- NOTE | 2016-10-09 11:39 | PDCARPN ---
Cardiology Progress Note Chief Complaint: chest pain Assessment/Plan: Assessment: 60-y/o F with PMH recent PE, htn, seen by Dr. Lewis in clinic yesterday for chest discomfort. She notes a clutching discomfort lasting briefly. #. cp: proceeded to MPI baseline ECG abnormalities with worsening with exertion await nuclear results #. anxiety: this may be contributing to her current presentation (pt became tearful after the stress test) #. htn: BP mildly elevated through stress test and during this admission Lisinopril dose just was increased Will consider adding another agent prior to discharge Plan: Await nuclear results Subjective: No cp at time of stress test. Reviewed/Discussed With: hospitalist Objective: Vital Signs (8 Hrs) Temp Pulse Resp BP Pulse Ox 10/09/16 11:33 97.7 F 61 15 150/91 H 92 10/09/16 08:20 98.2 F 65 12 147/82 H 93 Intake/Output (24 Hrs) 10/08/16 10/09/16 10/10/16 05:59 05:59 05:59 Other: Weight 59.874 kg Result Diagrams: 10/08/16 14:45 10/08/16 14:45 Cardiac Labs: Cardiac Lab Results (72 Hrs) 10/09/16 10/08/16 10/08/16 05:25 23:00 22:10 Troponin I < 0.012 < 0.012 REJ EKG: SR with inf-lat STD - Physical Exam Constitutional: no apparent distress Eyes: PERRL Cardiovascular: regular rate and rhythm, no murmurs Respiratory: clear to auscultate bilat, no crackles ICD10 Worksheet Patient Problems: Problems Problem Status Onset Chest pain Acute Abdominal pain Acute Allergic reaction caused by a drug Acute Diarrhea Acute Diarrhea in adult patient Acute Intractable diarrhea Acute Pulmonary embolism Acute
[2016-10-09] MEDS: APIXABAN 5 MG TAB PO SCH (13:35)
[2016-10-09 13:39] VITALS: BP 151/104; PULSE 75; RESP 16; TEMP 97.2; O2SAT 95
--- NOTE | 2016-10-09 14:48 | HOSPPROG ---
Hospitalist Progress Note Assessment/Plan: 60 yo F w cp stress neg home see dc summary Subjective: stress and trop neg Objective: Vital Signs Temp Pulse Resp BP Pulse Ox 36.2 C 75 16 151/104 H 95 10/09/16 13:37 10/09/16 13:37 10/09/16 13:37 10/09/16 13:37 10/09/16 13:37 - Physical Exam Constitutional: no apparent distress, appears nourished Eyes: PERRL, anicteric sclera, EOMI Ears, Nose, Mouth, Throat: moist mucous membranes, hearing normal Cardiovascular: regular rate and rhythym, no murmur, rub, or gallop Respiratory: no respiratory distress, no rales or rhonchi Gastrointestinal: normoactive bowel sounds, soft, non-tender abdomen Genitourinary: No levi in urethra Skin: warm, normal color Musculoskeletal: full muscle strength, no muscle tenderness Neurologic: AAOx3, sensation intact bilaterally Psychiatric: interacting appropriately, not anxious Lymph, Heme, Immunologic: no cervical LAD ICD10 Worksheet Patient Problems: Problems Problem Status Onset Chest pain Acute Abdominal pain Acute Allergic reaction caused by a drug Acute Diarrhea Acute Diarrhea in adult patient Acute Intractable diarrhea Acute Pulmonary embolism Acute
--- NOTE | 2016-10-09 15:08 | GDS ---
[f rep st] DISCHARGE SUMMARY DISCHARGE DIAGNOSES: 1. Chest pain. 2. Recent pulmonary embolism. 3. Deep venous thrombosis. 4. Hypertension. 5. Thoracic ascending aorta at 4 centimeters. Please see admission history and physical by Dr. aCra Medel. The patient presented with chest pain from her cytogenetic technician, Dr. Lewis's office. She had serial trop onin that were negative. She had no events on telemetry. She underwent a stress test, which was un remarkable. The patient is discharged home with unchanged medication regimen. /[id number]/MODL
== END 2016-10-09 14:54 | disposition home or self-care (01) ==
LOC: F1N 17:50
PROVIDERS: ADMIT Internal Medicine; ATTEND Internal Medicine
DX: R07.9 Chest pain, unspecified (principal); F41.9 Anxiety disorder, unspecified; K21.9 Gastro-esophageal reflux disease without esophagitis; I10 Essential (primary) hypertension; E03.9 Hypothyroidism, unspecified; Z86.718 Personal history of other venous thrombosis and embolism; Z86.711 Personal history of pulmonary embolism; Z87.891 Personal history of nicotine dependence
CPT/HCPCS: 71010; 78452; 93005; 93017; 96374; 99285; A9500; G0378; J2060

== ENCOUNTER 2016-11-18 16:24 | Emergency (ER) | payer BC ==
[2016-11-18 16:35] VITALS: RESP 16
--- NOTE | 2016-11-18 16:39 | EDPHY ---
H & P Stated Complaint: Productive cough, SOB, x 10 days. On zpack. Time Seen by Provider: 11/18/16 16:32 HPI/ROS: CHIEF COMPLAINT: Cough HISTORY OF PRESENT ILLNESS: the patient is a 61-year-old female who comes to the emergency department complaining of a persistent cough and shortness of breath. She states that she has been sick for about 10 days. It began as a sore throat and sinus congestion. She has not had a fever. She was seen by her primary the office 3 days ago and started on azithromycin. She has taken it now for 24 hours without significant improvement. She states that she is not getting better. She also has a history of unprovoked PE 1 month ago and is currently on Eliquis. She denies cardiac or pulmonary disease history. REVIEW OF SYSTEMS: Constitutional: denies: chills, fever, recent illness, recent injury EENTM: denies: blurred vision, double vision, nose congestion Respiratory: See HPI Cardiac: denies: chest pain, irregular heart rate, lightheadedness, palpitations Gastrointestinal/Abdominal: denies: abdominal pain, diarrhea, nausea, vomiting, blood streaked stools Genitourinary: denies: dysuria, frequency, hematuria, pain Musculoskeletal: denies: joint pain, muscle pain Skin: denies: lesions, rash, jaundice, bruising Neurological: denies: headache, numbness, paresthesia, tingling, dizziness, weakness Hematologic/Lymphatic: denies: blood clots, easy bleeding, easy bruising Immunologic/allergic: denies: HIV/AIDS, transplant EXAM: GENERAL: Well-appearing, well-nourished and in no acute distress. HEAD: Atraumatic, normocephalic. EYES: Pupils equal round and reactive to light, extraocular movements intact, sclera anicteric, conjunctiva are normal. ENT: TMs normal, nares patent, oropharynx clear without exudates. Moist mucous membranes. NECK: Normal range of motion, supple without lymphadenopathy or JVD. LUNGS: Breath sounds clear to auscultation bilaterally and equal. No wheezes rales or rhonchi. HEART: Regular rate and rhythm without murmurs, rubs or gallops. ABDOMEN: Soft, nontender, normoactive bowel sounds. No guarding, no rebound. No masses appreciated. BACK: No CVA tenderness, no spinal tenderness, step-offs or deformities EXTREMITIES: Normal range of motion, no pitting or edema. No clubbing or cyanosis. NEUROLOGICAL: Cranial nerves II through XII grossly intact. Normal speech, normal gait. 5/5 strength, normal movement in all extremities, normal sensation PSYCH: Normal mood, normal affect. SKIN: Warm, dry, normal turgor, no visible rashes or lesions. Source: Patient Exam Limitations: No limitations - Personal History Current Tetanus Diphtheria and Acellular Pertussis (TDAP): Yes Tetanus Vaccine Date: within 10 years - Medical/Surgical History Hx Asthma: No Hx Chronic Respiratory Disease: No Hx Diabetes: No Hx Cardiac Disease: No Hx Renal Disease: No Hx Cirrhosis: No Hx Alcoholism: Yes Hx HIV/AIDS: No Hx Splenectomy or Spleen Trauma: No Other PMH: ADD, anxiety, gerd, htn, Colitis, recent diagnosis of DVT and PE, aortic aneurysm - Family History Significant Family History: No pertinent family hx - Social History Smoking Status: Former smoker Alcohol Use: Sober Drug Use: None Constitutional: Initial Vital Signs Temperature (C) 36.3 C 11/18/16 16:26 Heart Rate 66 11/18/16 16:26 Respiratory Rate 16 11/18/16 16:26 Blood Pressure 158/87 H 11/18/16 16:26 O2 Sat (%) 95 11/18/16 16:26 O2 Delivery Mode Room Air Allergies/Adverse Reactions: atropine sulfate [From Lomotil] Allergy (Intermediate, Verified 11/18/16 16:35) Other-Enter Comments diphenoxylate HCl [From Lomotil] Allergy (Intermediate, Verified 11/18/16 16:35) Other-Enter Comments hydromorphone HCl [From Dilaudid] Allergy (Intermediate, Verified 11/18/16 16:35 ) neck gland swelling oxcarbazepine [From Trileptal] Allergy (Intermediate, Verified 11/18/16 16:35) Other-Enter Comments Sulfa (Sulfonamide Antibiotics) Allergy (Unknown, Verified 11/18/16 16:35) Other-Enter Comments fluconazole [From Diflucan] Allergy (Verified 11/18/16 16:35) Home Medications: Medication Instructions Recorded Levothyroxine [Synthroid 100 mcg 09/18/16 (*)] Lisinopril [Zestril 5 mg (*)] 09/18/16 Venlafaxine Xr [Effexor Xr 75MG 09/18/16 (*)] clonazePAM [Klonopin (*)] 09/18/16 traMADol [Ultram 50 mg (*)] 09/18/16 traZODone [traZODone 150MG (*)] 09/18/16 Apixaban [Eliquis] 10/08/16 EPINEPHRINE [EPIPEN] 10/08/16 Acetaminophen [Tylenol 325mg (*)] 11/18/16 levOFLOXACIN [levAQUIN] 750 mg PO DAILY #10 tab 11/18/16 Medical Decision Making - Diagnostics Imaging Results: Imaging Impressions Chest X-Ray 11/18/16 16:38 Impression: Right lower lung opacity has developed and presumably represents pneumonia in the correct clinical setting. Results called and discussed with SERENITY SALVADOR M.D. on 11/18/2016 at 16:55 Extremity Venous Study 11/18/16 17:00 Impression: 1. No evidence of deep vein thrombosis in the right leg. 2. Nonruptured Mendez's cyst. Findings and recommendations discussed with Serenity Salvador M.D., at 1800 hours, on November 18, 2016. Final report concurs with initial preliminary interpretation. Imaging: Discussed imaging studies w/ bingo caller Radiologist ED Course/Re-evaluation: Patient has pneumonia clearly seen on x-ray. I discussed this with her. It is in a different low then her PE which is in the right lower lobe. This is likely more an infection considering her symptoms and x-ray findings rather than a infarcted lung from her PE. She is on Eliquis. I will add Levaquin to her antibiotic regimen. She will continue taking azithromycin. Also she is now complaining of pain behind her right knee that she thinks may be a Mendez cyst of course she is worried about a DVT because she had 1 last month that ended up causing her PE. We will obtain ultrasound imaging. Also she is requesting a DuoNeb because this has helped her in the past. She has an albuterol inhaler at home that she has not used recently. We also discussed decongestants. 7:00 p.m. She is relieved with the ultrasound results. She has received IV Levaquin. She is eager to go home. We discussed indications for returning pain Differential Diagnosis: Partial list of the Differential diagnosis considered include but were not limited to; pneumonia, DVT, Mendez cyst and although unlikely based on the history and physical exam, I also considered PE, Eliquis failure, ischemia, acute coronary disease. I discussed these differential diagnoses and the plan with the patient as well as the usual and expected course. The patient understands that the diagnosis is provisional and that in medicine we are not always correct and that further workup is often warranted. Usual and customary warnings were given. All of the patient's questions were answered. The patient was instructed to return to the emergency department should the symptoms at all worsen or return, otherwise to followup with the physician as we discussed. - Data Points Laboratory Results: Laboratory Results 11/18/16 17:15 11/18/16 17:15 11/18/16 11/18/16 11/18/16 17:15 17:15 17:15 WBC 7.15 10^3/uL 10^3/uL (3.80-9.50) RBC 4.09 10^6/uL L 10^6/uL (4.18-5.33) Hgb 13.1 g/dL g/dL (12.6-16.3) Hct 37.7 % L % (38.0-47.0) MCV 92.2 fL fL (81.5-99.8) MCH 32.0 pg pg (27.9-34.1) MCHC 34.7 g/dL g/dL (32.4-36.7) RDW 11.9 % % (11.5-15.2) Plt Count 297 10^3/uL 10^3/uL (150-400) MPV 8.7 fL fL (8.7-11.7) Neut % (Auto) 54.4 % % (39.3-74.2) Lymph % (Auto) 34.8 % % (15.0-45.0) [place] % (Auto) 6.9 % % (4.5-13.0) Eos % (Auto) 2.9 % % (0.6-7.6) Baso % (Auto) 0.7 % % (0.3-1.7) Nucleat RBC Rel Count 0.0 % % (0.0-0.2) Absolute Neuts (auto) 3.89 10^3/uL 10^3/uL (1.70-6.50) Absolute Lymphs (auto) 2.49 10^3/uL 10^3/uL (1.00-3.00) Absolute Monos (auto) 0.49 10^3/uL 10^3/uL (0.30-0.80) Absolute Eos (auto) 0.21 10^3/uL 10^3/uL (0.03-0.40) Absolute Basos (auto) 0.05 10^3/uL 10^3/uL (0.02-0.10) Absolute Nucleated RBC 0.00 10^3/uL 10^3/uL (0-0.01) Immature Gran % 0.3 % % (0.0-1.1) Immature Gran # 0.02 10^3/uL 10^3/uL (0.00-0.10) APTT 31.7 SEC SEC (23.0-38.0) Sodium 131 mEq/L L mEq/L (134-144) Potassium 4.1 mEq/L mEq/L (3.5-5.2) Chloride 89 mEq/L L mEq/L (97-110) Carbon Dioxide 27 mEq/l mEq/l (22-31) Anion Gap 15 mEq/L mEq/L (8-16) BUN 15 mg/dL mg/dL (7-23) Creatinine 0.6 mg/dL mg/dL (0.6-1.0) Estimated GFR > 60 Glucose 118 mg/dL H mg/dL (70-100) Calcium 9.1 mg/dL mg/dL (8.5-10.4) Medications Given: Discontinued Medications Albuterol/Ipratropium (Duoneb) 3 ml IH EDNOW ONE Stop: 11/18/16 17:01 Last Admin: 11/18/16 17:06 Dose: 3 ml Levofloxacin/Dextrose (Levaquin 750 Mg (Premix)) 150 mls @ 100 mls/hr IV EDNOW ONE PRN Reason: Protocol Stop: 11/18/16 18:29 Last Admin: 11/18/16 17:06 Dose: 150 mls Departure - Departure Disposition: Home, Routine, Self-Care Clinical Impression: Pneumonia Qualifiers: Pneumonia type: due to unspecified organism Laterality: right Lung location: middle lobe of lung Qualified Code(s): J18.1 - Lobar pneumonia, unspecified organism Mendez's cyst of knee Qualifiers: Laterality: right Qualified Code(s): M71.21 - Synovial cyst of popliteal space [Mendez], right knee Condition: Fair Instructions: Bakers Cyst (ED), Pneumonia (ED) Referrals: Angy Bang MD [Primary Care Provider] - As per Instructions Prescriptions: levOFLOXACIN [levAQUIN] 750 mg PO DAILY #10 tab
[2016-11-18] MEDS ORDERED: IPRATROPIUM/ALBUTEROL 3 ML DEYVIAL IH ONE (17:00)
[2016-11-18 17:21] LABS: % IMMATURE GRANULYOCYTES 0.3 % (0.0-1.1); ABSOLUTE IMMATURE GRANULOCYTES 0.02 10^3/uL (0.00-0.10); ADD DIFF? NO; ADD MORPH? NO; ADD SCAN? NO; ATYPICAL LYMPHOCYTE FLAG 20 (0-99); FRAGMENT RBC FLAG 0 (0-99); HEMATOCRIT 37.7 % (38.0-47.0); HEMOGLOBIN 13.1 g/dL (12.6-16.3); LEFT SHIFT FLG 0 (0-99); LIPEMIA HEMOLYSIS FLAG 90 (0-99); MEAN CELL HEMOGLOBIN CONCENTR. 34.7 g/dL (32.4-36.7); MEAN CELL VOLUME 92.2 fL (81.5-99.8); MEAN PLATELET VOLUME 8.7 fL (8.7-11.7); PLATELET CLUMPS FLAG 0 (0-99); PLATELET COUNT 297 10^3/uL (150-400); RED BLOOD CELL COUNT 4.09 10^6/uL (4.18-5.33); RED CELL DISTRIBUTION WIDTH 11.9 % (11.5-15.2)
[2016-11-18 17:34] LABS: ANION GAP 15 mEq/L (8-16); CALCIUM 9.1 mg/dL (8.5-10.4); CARBON DIOXIDE 27 mEq/l (22-31); CHLORIDE 89 mEq/L (97-110); CREATININE 0.6 mg/dL (0.6-1.0); GLOMERULAR FILTRATION RATE > 60; GLUCOSE 118 mg/dL (70-100); POTASSIUM 4.1 mEq/L (3.5-5.2); SODIUM 131 mEq/L (134-144)
[2016-11-18 18:31] VITALS: O2SAT 98
[2016-11-18 19:16] VITALS: BP 138/79; PULSE 61; TEMP 98.1
== END 2016-11-18 19:16 | disposition home or self-care (01) ==
LOC: CED 16:24
DX: J18.9 Pneumonia, unspecified organism (principal); M71.21 Synovial cyst of popliteal space [Baker], right knee; I10 Essential (primary) hypertension; Z79.01 Long term (current) use of anticoagulants; Z86.711 Personal history of pulmonary embolism; Z87.891 Personal history of nicotine dependence
CPT/HCPCS: 71020-PO; 80048-PO; 85025-PO; 85730-PO; 93971-PO; 96365; J1956

== ENCOUNTER 2016-12-24 16:02 | Emergency (ER) | payer BC ==
[2016-12-24 16:17] VITALS: RESP 16
[2016-12-24] MEDS ORDERED: ONDANSETRON 4 MG/2 ML VIAL IVP ONE (16:33)
[2016-12-24] MEDS ORDERED: NS 500 ML IV ONE (16:33)
[2016-12-24 16:39] LABS: % IMMATURE GRANULYOCYTES 0.2 % (0.0-1.1); ABSOLUTE IMMATURE GRANULOCYTES 0.01 10^3/uL (0.00-0.10); ADD DIFF? NO; ADD MORPH? NO; ADD SCAN? NO; ATYPICAL LYMPHOCYTE FLAG 20 (0-99); FRAGMENT RBC FLAG 0 (0-99); HEMATOCRIT 36.8 % (38.0-47.0); HEMOGLOBIN 13.2 g/dL (12.6-16.3); LEFT SHIFT FLG 0 (0-99); LIPEMIA HEMOLYSIS FLAG 90 (0-99); MEAN CELL HEMOGLOBIN 32.7 pg (27.9-34.1); MEAN CELL HEMOGLOBIN CONCENTR. 35.9 g/dL (32.4-36.7); MEAN CELL VOLUME 91.1 fL (81.5-99.8); MEAN PLATELET VOLUME 8.9 fL (8.7-11.7); PLATELET CLUMPS FLAG 0 (0-99); PLATELET COUNT 242 10^3/uL (150-400); RED BLOOD CELL COUNT 4.04 10^6/uL (4.18-5.33); RED CELL DISTRIBUTION WIDTH 11.9 % (11.5-15.2)
--- NOTE | 2016-12-24 16:41 | EDPHY ---
H & P Stated Complaint: abd pain Time Seen by Provider: 12/24/16 16:13 HPI/ROS: This patient has cramping right-sided abdominal pain that started gradually this morning and has worsened through the day. Peak intensity 10/10, currently 6/10 after taking a tramadol and Tylenol approximately an hour prior to arrival she describes feeling poorly last night with some nausea and headache prior to the onset of the pain this morning. The intensity the pain is gradually increased throughout the day. She has never had this pain before. She thinks is slightly worse with movement but has not noticed any other clear exacerbating factors. She does have associated anorexia. She reports mild constipation but was still able have a bowel movement today she reports the bowel movement was more firm than usual. She admits that the pain does radiate slightly to her back. ROS: No high fevers or chills. No other constitutional symptoms. HEENT: No URI symptoms. Her headache is similar to prior headaches frontal in location and resolved at this time Pulmonary: No pleuritic pain or chest pain or dyspnea. Cardiovascular: No chest pain. She did feel lightheaded earlier and that has since improved. No syncope. No leg swelling. GI: No vomiting. No dark tarry stools. : No urinary symptoms Musculoskeletal: No complaints Neuro: No numbness tingling or other complaints 10 point ROS is otherwise negative Source: Patient Exam Limitations: No limitations - Personal History Tetanus Vaccine Date: within 10 years - Medical/Surgical History Hx Asthma: No Hx Chronic Respiratory Disease: No Hx Diabetes: No Hx Cardiac Disease: No Hx Renal Disease: No Hx Cirrhosis: No Hx Alcoholism: Yes Hx HIV/AIDS: No Hx Splenectomy or Spleen Trauma: No Other PMH: ADD, anxiety, gerd, htn, Colitis, recent diagnosis of DVT and PE, aortic aneurysm - Family History Significant Family History: Other (She does have a family history of cholecystitis) - Social History Smoking Status: Former smoker Alcohol Use: None Drug Use: None Additional Social History: 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 Eyes: Pupils equal and round no pallor or injection. ENT, Mouth: Mucous membranes moist. Respiratory: There are no retractions, lungs are clear to auscultation. Cardiovascular: Regular rate and rhythm. Gastrointestinal: Mildly hypoactive bowel sounds. She has mild right upper quadrant tenderness with no guarding or rebound. No hepatomegaly. No splenomegaly. Very minimal right lower belly tenderness with no guarding or rebound. Back: No CVA tenderness Neurological: GCS 15 with no focal deficits. Skin: Warm and dry, no rashes. Musculoskeletal: Neck is supple nontender. Extremities are symmetrical, full range of motion. Psychiatric: Mood and affect are normal DIFFERENTIAL DIAGNOSIS: After history and physical exam differential diagnosis was considered for cholecystitis, hepatitis, pancreatitis, constipation, appendicitis, pyelonephritis, aortic aneurysm, recurrent PE Constitutional: Initial Vital Signs Temperature (C) 36.9 C 12/24/16 16:05 Heart Rate 62 12/24/16 16:05 Respiratory Rate 16 12/24/16 16:05 Blood Pressure 189/98 H 12/24/16 16:05 O2 Sat (%) 95 12/24/16 16:05 O2 Delivery Mode Room Air Allergies/Adverse Reactions: atropine sulfate [From Lomotil] Allergy (Intermediate, Verified 12/24/16 16:17) Other-Enter Comments diphenoxylate HCl [From Lomotil] Allergy (Intermediate, Verified 12/24/16 16:17) Other-Enter Comments hydromorphone HCl [From Dilaudid] Allergy (Intermediate, Verified 12/24/16 16:17 ) neck gland swelling oxcarbazepine [From Trileptal] Allergy (Intermediate, Verified 12/24/16 16:17) Other-Enter Comments Sulfa (Sulfonamide Antibiotics) Allergy (Unknown, Verified 12/24/16 16:17) Other-Enter Comments fluconazole [From Diflucan] Allergy (Verified 12/24/16 16:17) Home Medications: Medication Instructions Recorded Levothyroxine [Synthroid 100 mcg 09/18/16 (*)] Lisinopril [Zestril 5 mg (*)] 09/18/16 Venlafaxine Xr [Effexor Xr 75MG 09/18/16 (*)] clonazePAM [Klonopin (*)] 09/18/16 traMADol [Ultram 50 mg (*)] 09/18/16 traZODone [traZODone 150MG (*)] 09/18/16 Apixaban [Eliquis] 10/08/16 EPINEPHRINE [EPIPEN] 10/08/16 Docusate Sodium [Colace 100 MG (*)] 100 mg PO BID #20 cap 12/24/16 Medical Decision Making - Diagnostics Imaging Results: Imaging Impressions Abdomen Ultrasound 12/24/16 16:34 Impression: 1. No cholelithiasis or biliary ductal dilation. 2. Atherosclerotic aorta without aneurysm. Findings and recommendations discussed with Emergency Department physician, ANUP CARRILLO at 17:06 hour, 12/24/2016. Final report concurs with initial preliminary interpretation. Imaging: Discussed imaging studies w/ focusing machine operator Radiologist ED Course/Re-evaluation: IV, Zofran with resolution of nausea. Patient declined analgesics, feeling relieved by her ultrasound revealed no gallbladder disease or other significant findings. Similarly, her CBC reveals a normal total white count, mild increase in lymphocytes, electrolytes and LFTs are normal. Sodium is mildly low as is chloride. She admits that she drinks a lot of water but no left light drinks. Discussion: I suspect this patient has cramping discomfort is attributable to her constipation and potentially a mild viral illness. I counseled her regarding this. I entertained the possibility of giving her Levsin or other anti spasmodic but given her Lomotil allergy decided to hold off on antispasmodics for this patient's treatment plan focused instead on the constipation with plan to use stool softener, all of well and dietary modification. She will follow up with her primary care physician for recheck in understands the need to return emergency department should she have any significant worsening of her symptoms despite the treatment plan. - Data Points Laboratory Results: Laboratory Results 12/24/16 16:17 12/24/16 16:17 12/24/16 12/24/16 12/24/16 17:22 16:17 16:17 WBC 4.55 10^3/uL 10^3/uL (3.80-9.50) RBC 4.04 10^6/uL L 10^6/uL (4.18-5.33) Hgb 13.2 g/dL g/dL (12.6-16.3) Hct 36.8 % L % (38.0-47.0) MCV 91.1 fL fL (81.5-99.8) MCH 32.7 pg pg (27.9-34.1) MCHC 35.9 g/dL g/dL (32.4-36.7) RDW 11.9 % % (11.5-15.2) Plt Count 242 10^3/uL 10^3/uL (150-400) MPV 8.9 fL fL (8.7-11.7) Neut % (Auto) 42.4 % % (39.3-74.2) Lymph % (Auto) 45.5 % H % (15.0-45.0) [place] % (Auto) 8.4 % % (4.5-13.0) Eos % (Auto) 2.4 % % (0.6-7.6) Baso % (Auto) 1.1 % % (0.3-1.7) Nucleat RBC Rel Count 0.0 % % (0.0-0.2) Absolute Neuts (auto) 1.93 10^3/uL 10^3/uL (1.70-6.50) Absolute Lymphs (auto) 2.07 10^3/uL 10^3/uL (1.00-3.00) Absolute Monos (auto) 0.38 10^3/uL 10^3/uL (0.30-0.80) Absolute Eos (auto) 0.11 10^3/uL 10^3/uL (0.03-0.40) Absolute Basos (auto) 0.05 10^3/uL 10^3/uL (0.02-0.10) Absolute Nucleated RBC 0.00 10^3/uL 10^3/uL (0-0.01) Immature Gran % 0.2 % % (0.0-1.1) Immature Gran # 0.01 10^3/uL 10^3/uL (0.00-0.10) Sodium 130 mEq/L L mEq/L (134-144) Potassium 3.8 mEq/L mEq/L (3.5-5.2) Chloride 90 mEq/L L mEq/L (97-110) Carbon Dioxide 27 mEq/l mEq/l (22-31) Anion Gap 13 mEq/L mEq/L (8-16) BUN 12 mg/dL mg/dL (7-23) Creatinine 0.6 mg/dL mg/dL (0.6-1.0) Estimated GFR > 60 Glucose 86 mg/dL mg/dL (70-100) Calcium 8.9 mg/dL mg/dL (8.5-10.4) Total Bilirubin 0.5 mg/dL mg/dL (0.1-1.4) AST 15 IU/L IU/L (14-46) ALT 30 IU/L IU/L (9-52) Alkaline Phosphatase 68 IU/L IU/L (38-126) Total Protein 6.3 g/dL g/dL (6.3-8.2) Albumin 3.9 g/dL g/dL (3.5-5.0) Lipase 238.0 IU/L IU/L (23-300) Urine Color YELLOW Urine Appearance CLEAR Urine pH 7.5 (5.0-7.5) Ur Specific [place] 1.010 (1.002-1.030) Urine Protein NEGATIVE (NEGATIVE) Urine Ketones NEGATIVE (NEGATIVE) Urine Blood NEGATIVE (NEGATIVE) Urine Nitrate NEGATIVE (NEGATIVE) Urine Bilirubin NEGATIVE (NEGATIVE) Urine Urobilinogen 0.2 EU EU (0.2-1.0) Ur Leukocyte Esterase NEGATIVE (NEGATIVE) Urine Glucose NEGATIVE (NEGATIVE) Medications Given: Discontinued Medications Ondansetron HCl (Zofran) 4 mg IVP EDNOW ONE Stop: 12/24/16 16:34 Last Admin: 12/24/16 16:40 Dose: 4 mg Departure - Departure Disposition: Home, Routine, Self-Care Clinical Impression: Constipation Qualifiers: Constipation type: unspecified constipation type Qualified Code(s): K59.00 - Constipation, unspecified Abdominal pain Qualifiers: Abdominal location: right upper quadrant Qualified Code(s): R10.11 - Right upper quadrant pain Condition: Good Instructions: Constipation (ED), Acute Abdominal Pain (ED) Additional Instructions: Diagnoses: 1. Abdominal pain 2. Constipation Plan: Electrolyte balance drinks Add olive oil 1-2 tbsp per day to your diet and take a stool softener Tylenol for discomfort as needed follow up with Dr. Bang sometime within the next 3-7 days. Return for any significant worsening despite the treatment plan Referrals: Angy Bang MD [Primary Care Provider] - As per Instructions Prescriptions: Docusate Sodium [Colace 100 MG (*)] 100 mg PO BID #20 cap
[2016-12-24 16:47] LABS: ALANINE AMINOTRANSFERASE 30 IU/L (9-52); ALBUMIN 3.9 g/dL (3.5-5.0); ALKALINE PHOSPHATASE 68 IU/L (38-126); ANION GAP 13 mEq/L (8-16); ASPARTATE AMINOTRANSFERASE 15 IU/L (14-46); BILIRUBIN,TOTAL 0.5 mg/dL (0.1-1.4); CALCIUM 8.9 mg/dL (8.5-10.4); CARBON DIOXIDE 27 mEq/l (22-31); CHLORIDE 90 mEq/L (97-110); CREATININE 0.6 mg/dL (0.6-1.0); GLOMERULAR FILTRATION RATE > 60; GLUCOSE 86 mg/dL (70-100); POTASSIUM 3.8 mEq/L (3.5-5.2); SODIUM 130 mEq/L (134-144); TOTAL PROTEIN 6.3 g/dL (6.3-8.2)
[2016-12-24 17:26] LABS: COLOR YELLOW; LEUKOCYTE ESTERASE,URINE NEGATIVE (NEGATIVE); NITRITE,URINE NEGATIVE (NEGATIVE); PH,URINE 7.5 (5.0-7.5)
[2016-12-24] MEDS ORDERED: ONDANSETRON 4MG PREPACK#2 BTL TAKEHOME ONE ×2 (17:50→17:58)
[2016-12-24 18:06] VITALS: BP 155/90; PULSE 56; TEMP 97.9; O2SAT 96
== END 2016-12-24 18:05 | disposition home or self-care (01) ==
LOC: CED 16:02
DX: K59.00 Constipation, unspecified (principal); I10 Essential (primary) hypertension; Z87.891 Personal history of nicotine dependence
CPT/HCPCS: 76705-PO; 80053-PO; 81003-PO; 83690-PO; 85025-PO; 96374; J2405

== ENCOUNTER 2017-02-02 16:30 | Emergency (ER) | payer BC ==
[2017-02-02] MEDS ORDERED: FAMOTIDINE 20 MG in NS 100 ML IV ONE (16:37)
[2017-02-02] MEDS ORDERED: NS 500 ML IV ONE (16:37)
[2017-02-02] MEDS ORDERED: ONDANSETRON 4 MG/2 ML VIAL IVP ONE (16:37)
[2017-02-02 16:48] VITALS: RESP 16; TEMP 97.9
[2017-02-02] MEDS ORDERED: PANTOPRAZOLE SODIUM 40 MG in NS 100 ML IV ONE (16:50)
--- NOTE | 2017-02-02 16:56 | EDPHY ---
H & P Time Seen by Provider: 02/02/17 16:34 HPI/ROS: HPI Bloody bowel movements. 61-year-old female by private vehicle. She presents to the emergency department from up stairs and her primary care physician's office. She saw Dr. Bang apparently. She reports that yesterday she developed upper abdominal discomfort which she describes is vague, burning and cramping in her epigastric area and across her upper abdomen. She reports that she started having bloody stools. She describes this is bright red blood mixed in with her stools. She reports that this got better yesterday evening but then this morning she started having bloody stools again which were turning progressively more black and mucousy. She does have a history of colitis. She called her warp hauler, ángela Conner at the [facility] and was told to come to the emergency department for further evaluation. She is also seen several GI specialist at of the [facility]. She has a previous history of colitis. She also has been treated for peptic ulcer disease. 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 She has had nausea but no vomiting. Her last meal was yesterday. She reports to me she has been using Pepto-Bismol as well. ROS: Constitutional: No fever, no chills. No weakness. Eyes: No discharge. No changes in vision. ENT: No sore throat. No nasal congestion or rhinorrhea. Respiratory: No cough. No shortness of breath. Cardiac: No chest pain, no palpitations. Gastrointestinal: As above. Genitourinary: No hematuria. No dysuria or increased frequency with urination. Musculoskeletal: No back pain. No neck pain. No myalgias or arthralgias. Skin: No rashes. Neurological: No headache. No focal weakness or altered sensation. Past medical history: Past medical history includes ADD, anxiety, depression, colitis, DVT/PE, on apixaban as above, colitis, Aortic aneurysm. Social history: Nonsmoker. She is . No alcohol. Physical Exam: General Appearance: Alert, no distress. This patient is responding to questions appropriately and in full sentences. This patient appears well- hydrated and well-nourished. Eyes: Pupils equal and round no pallor or injection. No lid edema, erythema or injection. Respiratory: There are no retractions, lungs are clear to auscultation with good air movement bilaterally. Cardiovascular: Regular rate and rhythm. No murmur. Gastrointestinal: Abdomen is soft with vague and mild if any tenderness across upper abdomen on palpation, no masses, bowel sounds normal. No focal tenderness at McBurney's point. No Holbrook sign. Rectal exam: Normal rectal tone, no fissures or bleeding hemorrhoids noted. Brown stool of normal consistency. No gross blood or melenic stool. Neurological: Motor sensory function is grossly intact. Cranial nerves are normal. Gait is normal. Skin: Warm and dry, no rashes. Musculoskeletal: Neck is supple and nontender. Extremities are symmetrical. All joints range without pain or impingement. Psychiatric: No agitation. No depression. Database: EKG: Imaging: Procedures: Emergency department course: IV was placed. She was placed on a online trader. Vital signs reviewed. She is moderately hypertensive. Vital signs are otherwise normal. She was started on IV normal saline with 500 cc to be given over the next hour. She was initially given 4 mg of IV Zofran, 20 mg of IV Pepcid 40 mg of IV Protonix. Hemoccult testing for occult stool blood negative. 5:40 p.m., patient re-evaluated. Her blood work, exam and emergency department presentation are not consistent with significant gastrointestinal bleeding. Her baseline sodium runs low at around 130. She is 127 today. Her lipase was mildly elevated. She does not have significant tenderness on palpation of the epigastrium and has been tolerating oral fluids in the emergency department. Repeat abdominal exam she is soft, nontender nondistended. I do not feel that she has a significant gastrointestinal bleeding disorder. She feels comfortable going home and following up with her warp hauler, Dr. Bell, at the [facility]. She also sees warp hauler from GI of the [facility] and I explained this would be appropriate as well. She was told to continue her medications as prescribed. I explained that taking Pepto-Bismol can darken stools. Return to emergency department precautions were reviewed with her. All of her questions were answered. She was discharged in good condition. Differential Diagnosis: The differential diagnosis on this patient includes but is not limited to mild pancreatitis, gastritis, anxiety reaction, Pepto-Bismol ingestion. Peptic ulcer disease with upper gastrointestinal bleeding, hemorrhagic colitis, diverticulosis, perforated peptic ulcer, other acute surgical etiology unlikely. This represents a partial list of diagnoses considered. These considerations are based on history, physical exam, past history, reassessment and diagnostic testing. Smoking Status: Former smoker Constitutional: Initial Vital Signs Temperature (C) 36.6 C 02/02/17 16:39 Heart Rate 54 L 02/02/17 16:39 Respiratory Rate 16 02/02/17 16:39 Blood Pressure 174/98 H 02/02/17 16:39 O2 Sat (%) 97 02/02/17 16:39 O2 Delivery Mode Room Air Allergies/Adverse Reactions: atropine sulfate [From Lomotil] Allergy (Intermediate, Verified 02/02/17 16:45) Other-Enter Comments diphenoxylate HCl [From Lomotil] Allergy (Intermediate, Verified 02/02/17 16:45) Other-Enter Comments hydromorphone HCl [From Dilaudid] Allergy (Intermediate, Verified 02/02/17 16:45 ) neck gland swelling oxcarbazepine [From Trileptal] Allergy (Intermediate, Verified 02/02/17 16:45) Other-Enter Comments Sulfa (Sulfonamide Antibiotics) Allergy (Unknown, Verified 02/02/17 16:45) Other-Enter Comments fluconazole [From Diflucan] Allergy (Verified 02/02/17 16:45) levofloxacin [From Levaquin] Allergy (Verified 02/02/17 16:46) Home Medications: Medication Instructions Recorded Levothyroxine [Synthroid 100 mcg 09/18/16 (*)] Lisinopril [Zestril 5 mg (*)] 09/18/16 Venlafaxine Xr [Effexor Xr 75MG 09/18/16 (*)] clonazePAM [Klonopin (*)] 09/18/16 traMADol [Ultram 50 mg (*)] 09/18/16 traZODone [traZODone 150MG (*)] 09/18/16 Apixaban [Eliquis] 10/08/16 Medical Decision Making - Data Points Laboratory Results: Laboratory Results 02/02/17 17:00 02/02/17 17:00 02/02/17 02/02/17 02/02/17 17:15 17:00 17:00 WBC RBC Hgb Hct MCV MCH MCHC RDW Plt Count MPV Neut % (Auto) Lymph % (Auto) [place] % (Auto) Eos % (Auto) Baso % (Auto) Nucleat RBC Rel Count Absolute Neuts (auto) Absolute Lymphs (auto) Absolute Monos (auto) Absolute Eos (auto) Absolute Basos (auto) Absolute Nucleated RBC Immature Gran % Immature Gran # PT 13.6 SEC SEC (12.0-15.0) INR 1.07 (0.83-1.16) APTT 35.0 SEC SEC (23.0-38.0) Sodium 127 mEq/L L mEq/L (134-144) Potassium 3.8 mEq/L mEq/L (3.5-5.2) Chloride 90 mEq/L L mEq/L (97-110) Carbon Dioxide 26 mEq/l mEq/l (22-31) Anion Gap 11 mEq/L mEq/L (8-16) BUN 9 mg/dL mg/dL (7-23) Creatinine 0.6 mg/dL mg/dL (0.6-1.0) Estimated GFR > 60 Glucose 87 mg/dL mg/dL (70-100) Calcium 9.3 mg/dL mg/dL (8.5-10.4) Total Bilirubin 0.7 mg/dL mg/dL (0.1-1.4) Conjugated Bilirubin 0.2 mg/dL mg/dL (0.0-0.5) Unconjugated Bilirubin 0.5 mg/dL mg/dL (0.0-1.1) AST 13 IU/L L IU/L (14-46) ALT 34 IU/L IU/L (9-52) Alkaline Phosphatase 51 IU/L IU/L (38-126) Total Protein 6.4 g/dL g/dL (6.3-8.2) Albumin 4.3 g/dL g/dL (3.5-5.0) Lipase 491.0 IU/L H IU/L (23-300) Stool Occult Bld Scrn NEGATIVE (NEGATIVE) 02/02/17 17:00 WBC 4.65 10^3/uL 10^3/uL (3.80-9.50) RBC 4.36 10^6/uL 10^6/uL (4.18-5.33) Hgb 13.8 g/dL g/dL (12.6-16.3) Hct 39.0 % % (38.0-47.0) MCV 89.4 fL fL (81.5-99.8) MCH 31.7 pg pg (27.9-34.1) MCHC 35.4 g/dL g/dL (32.4-36.7) RDW 12.2 % % (11.5-15.2) Plt Count 238 10^3/uL 10^3/uL (150-400) MPV 8.7 fL fL (8.7-11.7) Neut % (Auto) 42.8 % % (39.3-74.2) Lymph % (Auto) 46.2 % H % (15.0-45.0) [place] % (Auto) 8.0 % % (4.5-13.0) Eos % (Auto) 2.4 % % (0.6-7.6) Baso % (Auto) 0.6 % % (0.3-1.7) Nucleat RBC Rel Count 0.0 % % (0.0-0.2) Absolute Neuts (auto) 1.99 10^3/uL 10^3/uL (1.70-6.50) Absolute Lymphs (auto) 2.15 10^3/uL 10^3/uL (1.00-3.00) Absolute Monos (auto) 0.37 10^3/uL 10^3/uL (0.30-0.80) Absolute Eos (auto) 0.11 10^3/uL 10^3/uL (0.03-0.40) Absolute Basos (auto) 0.03 10^3/uL 10^3/uL (0.02-0.10) Absolute Nucleated RBC 0.00 10^3/uL 10^3/uL (0-0.01) Immature Gran % 0.0 % % (0.0-1.1) Immature Gran # 0.00 10^3/uL 10^3/uL (0.00-0.10) PT INR APTT Sodium Potassium Chloride Carbon Dioxide Anion Gap BUN Creatinine Estimated GFR Glucose Calcium Total Bilirubin Conjugated Bilirubin Unconjugated Bilirubin AST ALT Alkaline Phosphatase Total Protein Albumin Lipase Stool Occult Bld Scrn Medications Given: Discontinued Medications Sodium Chloride (Ns) 500 mls @ 0 mls/hr IV EDNOW ONE; Wide Open PRN Reason: Protocol Stop: 02/02/17 16:38 Last Admin: 02/02/17 17:12 Dose: 500 mls Famotidine 20 mg/ Sodium (Chloride) 102 mls @ 408 mls/hr IV EDNOW ONE Stop: 02/02/17 16:51 Last Admin: 02/02/17 17:20 Dose: 102 mls Pantoprazole Sodium 40 mg/ (Sodium Chloride) 100 mls @ 200 mls/hr IV ONCE ONE Stop: 02/02/17 17:19 Last Admin: 02/02/17 17:38 Dose: 100 mls Ondansetron HCl (Zofran) 4 mg IVP EDNOW ONE Stop: 02/02/17 16:38 Last Admin: 02/02/17 17:13 Dose: 4 mg Departure - Departure Disposition: Home, Routine, Self-Care Clinical Impression: Hyponatremia, Elevated lipase, History of rectal bleeding Condition: Good Instructions: Gastrointestinal Bleeding (ED), Hyponatremia (ED) Additional Instructions: Read and follow provided instructions. Follow-up with your primary care physician, Dr. Bang or your warp hauler Dr. Bell in 1-2 days for re-evaluation. You should have your sodium rechecked as well as your lipase as discussed. Continue taking your medications as prescribed only. Return to the emergency department for rectal bleeding, lightheadedness, vomiting, worsening abdominal pain, fever or other serious concerns. Referrals: Angy Bang MD [Primary Care Provider] - As per Instructions
[2017-02-02 17:14] LABS: ADD DIFF? NO; ADD MORPH? NO; ADD SCAN? NO; ATYPICAL LYMPHOCYTE FLAG 20 (0-99); FRAGMENT RBC FLAG 0 (0-99); HEMOGLOBIN 13.8 g/dL (12.6-16.3); LEFT SHIFT FLG 0 (0-99); LIPEMIA HEMOLYSIS FLAG 90 (0-99); MEAN CELL HEMOGLOBIN 31.7 pg (27.9-34.1); MEAN CELL HEMOGLOBIN CONCENTR. 35.4 g/dL (32.4-36.7); MEAN CELL VOLUME 89.4 fL (81.5-99.8); MEAN PLATELET VOLUME 8.7 fL (8.7-11.7); PLATELET CLUMPS FLAG 10 (0-99); PLATELET COUNT 238 10^3/uL (150-400); RED BLOOD CELL COUNT 4.36 10^6/uL (4.18-5.33); RED CELL DISTRIBUTION WIDTH 12.2 % (11.5-15.2)
[2017-02-02 17:23] LABS: INR 1.07 (0.83-1.16); PROTIME(PATIENT) 13.6 SEC (12.0-15.0)
[2017-02-02 17:26] LABS: ALANINE AMINOTRANSFERASE 34 IU/L (9-52); ALBUMIN 4.3 g/dL (3.5-5.0); ALKALINE PHOSPHATASE 51 IU/L (38-126); ANION GAP 11 mEq/L (8-16); ASPARTATE AMINOTRANSFERASE 13 IU/L (14-46); BILIRUBIN,TOTAL 0.7 mg/dL (0.1-1.4); BILIRUBIN-CONJUGATED 0.2 mg/dL (0.0-0.5); BILIRUBIN-UNCONJUGATED 0.5 mg/dL (0.0-1.1); CALCIUM 9.3 mg/dL (8.5-10.4); CARBON DIOXIDE 26 mEq/l (22-31); CHLORIDE 90 mEq/L (97-110); CREATININE 0.6 mg/dL (0.6-1.0); GLOMERULAR FILTRATION RATE > 60; GLUCOSE 87 mg/dL (70-100); POTASSIUM 3.8 mEq/L (3.5-5.2); SODIUM 127 mEq/L (134-144); TOTAL PROTEIN 6.4 g/dL (6.3-8.2)
[2017-02-02 18:16] VITALS: BP 166/95; PULSE 50; O2SAT 95
== END 2017-02-02 18:15 | disposition home or self-care (01) ==
LOC: CED 16:30
DX: E87.1 Hypo-osmolality and hyponatremia (principal); R74.8 Abnormal levels of other serum enzymes; E86.9 Volume depletion, unspecified; Z87.19 Personal history of other diseases of the digestive system; Z87.891 Personal history of nicotine dependence
CPT/HCPCS: 80048-PO; 80076-PO; 82270-PO; 83690-PO; 85025-PO; 85610-PO; 85730-PO; 96365; 96366; J2405

== ENCOUNTER → 2017-03-02 | Outpatient (CLI) | payer BC | LOC: CIMAGING 10:48 | PROVIDERS: ATTEND Family Medicine | DX: Z12.31 Encounter for screening mammogram for malignant neoplasm of breast (principal) | CPT/HCPCS: G0202 ==

== ENCOUNTER → 2017-03-03 | Outpatient (CLI) | payer BC | LOC: CIMAGING 09:24 | PROVIDERS: ATTEND Family Medicine | DX: J18.9 Pneumonia, unspecified organism (principal) | CPT/HCPCS: 71020-PO ==

== ENCOUNTER → 2017-03-05 | Outpatient (CLI) | payer BC | LOC: CIMAGING 12:43 | PROVIDERS: ATTEND Family Medicine | DX: Z12.39 Encounter for other screening for malignant neoplasm of breast (principal); R92.8 Other abnormal and inconclusive findings on diagnostic imaging of breast | CPT/HCPCS: 76641-PO; G0206 ==

== ENCOUNTER 2017-05-28 17:20 | Emergency (ER) | payer BC ==
[2017-05-28 17:46] VITALS: RESP 14; TEMP 98.2
--- NOTE | 2017-05-28 17:48 | EDPHY ---
H & P Stated Complaint: severe right calf pain Time Seen by Provider: 05/28/17 17:38 HPI/ROS: CHIEF COMPLAINT: Right leg pain HISTORY OF PRESENT ILLNESS: The patient is a 61-year-old female with a history of DVT/PE comes to the emergency department complaining of right leg pain from her knee down. She was in [place] and flew home 4 days ago. She states that she was doing a lot of lying around and immobilization because she was taking care of grand kids in [place]. She does take Eliquis daily. She denies chest pain or shortness of breath. No swelling. No erythema. 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 No significant trauma. REVIEW OF SYSTEMS: Constitutional: denies: chills, fever, recent illness, recent injury EENTM: denies: blurred vision, double vision, nose congestion Respiratory: denies: cough, shortness of breath Cardiac: denies: chest pain, irregular heart rate, lightheadedness, palpitations Gastrointestinal/Abdominal: denies: abdominal pain, diarrhea, nausea, vomiting, blood streaked stools Genitourinary: denies: dysuria, frequency, hematuria, pain Musculoskeletal: See HPI Skin: denies: lesions, rash, jaundice, bruising Neurological: denies: headache, numbness, paresthesia, tingling, dizziness, weakness Hematologic/Lymphatic: denies: blood clots, easy bleeding, easy bruising Immunologic/allergic: denies: HIV/AIDS, transplant EXAM: GENERAL: Well-appearing, well-nourished and in no acute distress. HEAD: Atraumatic, normocephalic. EYES: Pupils equal round and reactive to light, extraocular movements intact, sclera anicteric, conjunctiva are normal. ENT: TMs normal, nares patent, oropharynx clear without exudates. Moist mucous membranes. NECK: Normal range of motion, supple without lymphadenopathy or JVD. LUNGS: Breath sounds clear to auscultation bilaterally and equal. No wheezes rales or rhonchi. HEART: Regular rate and rhythm without murmurs, rubs or gallops. ABDOMEN: Soft, nontender, normoactive bowel sounds. No guarding, no rebound. No masses appreciated. BACK: No CVA tenderness, no spinal tenderness, step-offs or deformities EXTREMITIES: No swelling, no tenderness, negative Homans. Normal pulses and sensation. NEUROLOGICAL: Cranial nerves II through XII grossly intact. Normal speech, normal gait. 5/5 strength, normal movement in all extremities, normal sensation PSYCH: Normal mood, normal affect. SKIN: Warm, dry, normal turgor, no visible rashes or lesions. Source: Patient Exam Limitations: No limitations - Personal History Current Tetanus Diphtheria and Acellular Pertussis (TDAP): Yes Tetanus Vaccine Date: 2013 - Medical/Surgical History Hx Asthma: No Hx Chronic Respiratory Disease: No Hx Diabetes: No Hx Cardiac Disease: No Hx Renal Disease: No Hx Cirrhosis: No Hx Alcoholism: Yes Hx HIV/AIDS: No Hx Splenectomy or Spleen Trauma: No Other PMH: ADD, anxiety, gerd, htn, Colitis, DVT,PE, aortic aneurysm,hypothyroid ,ETOH,arthritis - Family History Significant Family History: No pertinent family hx - Social History Smoking Status: Former smoker Alcohol Use: Sober Drug Use: None Constitutional: Initial Vital Signs Temperature (C) 36.8 C 05/28/17 17:43 Heart Rate 65 05/28/17 17:43 Respiratory Rate 14 05/28/17 17:43 Blood Pressure 128/73 H 05/28/17 17:43 O2 Sat (%) 95 05/28/17 17:43 O2 Delivery Mode Room Air Allergies/Adverse Reactions: atropine sulfate [From Lomotil] Allergy (Intermediate, Verified 05/28/17 17:40) Other-Enter Comments diphenoxylate HCl [From Lomotil] Allergy (Intermediate, Verified 05/28/17 17:40) Other-Enter Comments hydromorphone HCl [From Dilaudid] Allergy (Intermediate, Verified 05/28/17 17:40 ) neck gland swelling oxcarbazepine [From Trileptal] Allergy (Intermediate, Verified 05/28/17 17:40) Other-Enter Comments Sulfa (Sulfonamide Antibiotics) Allergy (Unknown, Verified 05/28/17 17:40) Other-Enter Comments fluconazole [From Diflucan] Allergy (Verified 05/28/17 17:40) levofloxacin [From Levaquin] Allergy (Verified 05/28/17 17:40) Home Medications: Medication Instructions Recorded Levothyroxine [Synthroid 100 mcg 09/18/16 (*)] Lisinopril [Zestril 5 mg (*)] 09/18/16 Venlafaxine Xr [Effexor Xr 75MG 09/18/16 (*)] traMADol [Ultram 50 mg (*)] 09/18/16 traZODone [traZODone 150MG (*)] 09/18/16 Apixaban [Eliquis] 10/08/16 PRILOSEC 05/28/17 Medical Decision Making - Diagnostics Imaging: Discussed imaging studies w/ faculty i on call medical assistant Radiologist ED Course/Re-evaluation: 6:40 p.m. we discussed the ultrasound results. The patient is greatly relieved. She is eager to go home. She declines Gustavo wrap and states that she has a brace at home. She declines further workup or testing. Differential Diagnosis: Partial list of the Differential diagnosis considered include but were not limited to; DVT, Mendez cyst and although unlikely based on the history and physical exam, I also considered cellulitis, thrombosis. I discussed these differential diagnoses and the plan with the patient as well as the usual and expected course. The patient understands that the diagnosis is provisional and that in medicine we are not always correct and that further workup is often warranted. Usual and customary warnings were given. All of the patient's questions were answered. The patient was instructed to return to the emergency department should the symptoms at all worsen or return, otherwise to followup with the physician as we discussed. - Data Points Medications Given: Discontinued Medications Oxycodone HCl (Oxycodone Ir) 5 mg PO EDNOW ONE Stop: 05/28/17 18:17 Last Admin: 05/28/17 18:19 Dose: Not Given Oxycodone/Acetaminophen (Percocet 5/325) 1 tab PO EDNOW ONE Stop: 05/28/17 18:21 Last Admin: 05/28/17 18:21 Dose: 1 tab Departure - Departure Disposition: Home, Routine, Self-Care Clinical Impression: Mendez's cyst of knee Qualifiers: Laterality: right Qualified Code(s): M71.21 - Synovial cyst of popliteal space [Mendez], right knee Condition: Fair Instructions: Bakers Cyst (ED) Referrals: Angy Bang MD [Primary Care Provider] - As per Instructions
[2017-05-28] MEDS ORDERED: OXYCODONE/APAP 5/325 TAB ONE (18:10)
[2017-05-28] MEDS ORDERED: oxyCODONE IR 5 MG TAB PO ONE (18:16)
[2017-05-28] MEDS ORDERED: OXYCODONE/APAP 5/325 TAB PO ONE (18:20)
[2017-05-28 22:42] VITALS: BP 124/72; PULSE 72; O2SAT 94
== END 2017-05-28 19:00 | disposition home or self-care (01) ==
LOC: CED 17:20
DX: M71.21 Synovial cyst of popliteal space [Baker], right knee (principal); I10 Essential (primary) hypertension; Z79.01 Long term (current) use of anticoagulants; Z87.891 Personal history of nicotine dependence
CPT/HCPCS: 93971-PO

== ENCOUNTER 2017-06-06 12:48 | Observation (INO) | payer BC ==
[2017-06-06] MEDS ORDERED: DEXAMETHASONE 10 MG/ML VIAL IVP ONE (13:27)
[2017-06-06] MEDS ORDERED: NS 1,000 ML IV ONE (13:27)
[2017-06-06] MEDS ORDERED: METOCLOPRAMIDE 10 MG/2 ML VIAL IVP ONE (13:28)
[2017-06-06 13:34] LABS: % IMMATURE GRANULYOCYTES 0.3 % (0.0-1.1); ABSOLUTE IMMATURE GRANULOCYTES 0.01 10^3/uL (0.00-0.10); ADD DIFF? NO; ADD MORPH? NO; ADD SCAN? NO; ATYPICAL LYMPHOCYTE FLAG 10 (0-99); FRAGMENT RBC FLAG 0 (0-99); HEMATOCRIT 35.7 % (38.0-47.0); HEMOGLOBIN 12.7 g/dL (12.6-16.3); LEFT SHIFT FLG 0 (0-99); LIPEMIA HEMOLYSIS FLAG 90 (0-99); MEAN CELL HEMOGLOBIN CONCENTR. 35.6 g/dL (32.4-36.7); MEAN CELL VOLUME 89.9 fL (81.5-99.8); MEAN PLATELET VOLUME 8.3 fL (8.7-11.7); PLATELET CLUMPS FLAG 0 (0-99); PLATELET COUNT 260 10^3/uL (150-400); RED BLOOD CELL COUNT 3.97 10^6/uL (4.18-5.33); RED CELL DISTRIBUTION WIDTH 12.1 % (11.5-15.2)
[2017-06-06 13:40] LABS: ANION GAP 14 mEq/L (8-16); CALCIUM 9.1 mg/dL (8.5-10.4); CARBON DIOXIDE 27 mEq/l (22-31); CREATININE 0.7 mg/dL (0.6-1.0); GLOMERULAR FILTRATION RATE > 60; GLUCOSE 85 mg/dL (70-100); SODIUM 123 mEq/L (134-144)
[2017-06-06 13:46] LABS: CHLORIDE 82 mEq/L (97-110)
--- NOTE | 2017-06-06 14:00 | EDPHY ---
H & P Stated Complaint: 3 days of headache Time Seen by Provider: 06/06/17 12:58 HPI/ROS: The patient arrived by private vehicle with severe headache. She explains that starting at around noon on Wednesday she developed gradual onset of frontal headache feels like it is in the midline test slightly right of center sharp in nature 9/10 in intensity. She has associated photophobia. The patient has tried multiple medications including tramadol 50 mg at 9:00 a.m. today, Klonopin , Tylenol 325 mg, Zofran for nausea, 2 baby aspirin and 200 mg of ibuprofen at 11:00 a.m. as well as Sudafed and caffeine without relief of her severe pain. She reports feeling slight difficulty concentrating and notes that she was miss spelling words that she can usually spelled normally this morning. She reports having had 2 similar headaches in her life of slightly lesser intensity treated with Imitrex with relief. She never had any neuro imaging. She is currently on Eliquis for diagnosis of DVT in August. The patient saw her primary care physician, Dr. Bang on Wednesday with metabolic panel sent to rule out diabetes as the patient reports some urinary frequency. Patient reports that she has been drinking a lot of water in addition to try to hydrate as an attempt to get over her headache. ROS: Constitutional: No fevers or chills. No fatigue. HEENT: No recent head trauma. She reports no URI symptoms. No sore throat. No ear pain or change in hearing. She complains of decreased vision for 3 weeks in her right eye. She sometimes has dry eye and attributes her symptoms to dry eye. She also reports cataracts. Pulmonary: No cough shortness of breath Cardiovascular: No chest pain or heart palpitations. 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 Normal bowel movements with no diarrhea. : No complaints Integumentary: No skin rash Endocrine: No complaints Complete review of symptoms is otherwise negative. Source: Patient Exam Limitations: No limitations - Personal History Current Tetanus Diphtheria and Acellular Pertussis (TDAP): Yes Tetanus Vaccine Date: 2013 - Medical/Surgical History PMH: Mild hyponatremia-last sodium was 133 Hx Asthma: No Hx Chronic Respiratory Disease: No Hx Diabetes: No Hx Cardiac Disease: No Hx Renal Disease: No Hx Cirrhosis: No Hx Alcoholism: Yes Hx HIV/AIDS: No Hx Splenectomy or Spleen Trauma: No Other PMH: ADD, anxiety, gerd, htn, Colitis, DVT,PE, aortic aneurysm,hypothyroid ,ETOH,arthritis - Social History Smoking Status: Former smoker Alcohol Use: Sober (Sober for 9 years) Drug Use: None - Physical Exam Exam: Physical exam: Vital signs are normal General: Patient is in no acute distress. HEENT: Is no external evidence of trauma on exam. Eyes: Pupils are equal and reactive to light. Extraocular motions are intact. Optic fundi: Clear with no papilledema or hemorrhage. Nose atraumatic. Ears: Clear bilaterally with no hemotympanum. Oropharynx: No dental trauma or malocclusion. No intraoral lacerations. Eyes: Pupils are equal and reactive to light. Extraocular motions are intact. Optic fundi: Clear with no papilledema or hemorrhage. Lungs: Clear to auscultation bilaterally Neck: Supple no meningismus. Cardiac: Regular rate and rhythm no murmur gallop or rub. Abdomen: Soft nontender no organomegaly Neuro: GCS of 15. Cranial nerves II through XII intact. Cerebellar exam is normal as judged by symmetric rapid hand movements bilaterally. No pronator drift. No sensory or motor deficits are appreciated. Initial differential diagnosis: Migraine, tension headache, REFUSE LABORER lesion, intracranial bleed, metabolic disarray Constitutional: Initial Vital Signs Temperature (C) 36.7 C 06/06/17 12:56 Heart Rate 57 L 06/06/17 12:56 Respiratory Rate 16 06/06/17 12:56 Blood Pressure 170/91 H 06/06/17 12:56 O2 Sat (%) 93 06/06/17 12:56 O2 Delivery Mode Room Air Allergies/Adverse Reactions: atropine sulfate [From Lomotil] Allergy (Intermediate, Verified 06/06/17 13:01) Other-Enter Comments diphenoxylate HCl [From Lomotil] Allergy (Intermediate, Verified 06/06/17 13:01) Other-Enter Comments hydromorphone HCl [From Dilaudid] Allergy (Intermediate, Verified 06/06/17 13:01 ) neck gland swelling oxcarbazepine [From Trileptal] Allergy (Intermediate, Verified 06/06/17 13:01) Other-Enter Comments Sulfa (Sulfonamide Antibiotics) Allergy (Unknown, Verified 06/06/17 13:01) Other-Enter Comments fluconazole [From Diflucan] Allergy (Verified 06/06/17 13:01) levofloxacin [From Levaquin] Allergy (Verified 06/06/17 13:01) Home Medications: Medication Instructions Recorded Levothyroxine [Synthroid 100 mcg 09/18/16 (*)] Lisinopril [Zestril 5 mg (*)] 09/18/16 Venlafaxine Xr [Effexor Xr 75MG 09/18/16 (*)] traMADol [Ultram 50 mg (*)] 09/18/16 traZODone [traZODone 150MG (*)] 09/18/16 Apixaban [Eliquis] 10/08/16 PRILOSEC 05/28/17 KLONOPIN 06/06/17 Ondansetron 06/06/17 Vitamin B12 06/06/17 Medical Decision Making - Diagnostics Imaging Results: Imaging Impressions Head CT 06/06/17 13:54 Impression: Normal. Results called and discussed with Dr. Albin Booker at 06/06/2017 14:23. Imaging: Discussed imaging studies w/ callisthenics instructor Radiologist ED Course/Re-evaluation: IV normal saline bolus-1 L Reglan 5 mg and benadryl 25 mg IV Decadron 10 mg IV Headache down from 9 to a 7/10 and nausea resolved Tylenol p.o. A review of the patient's labs remarkable for her acute hyponatremia that change from 08/17 3 on Wednesday this 17-123 today. Her CBC is normal another electrolytes are normal. Discussion: This patient presents with severe headache nausea and mild confusion with CT that ruled out intracranial bleed or mass. She has had occasional migraine-like headaches in the past and think that is the etiology of this headache. She aggressively hydrated starting on Wednesday and I think that her acute hyponatremia is hypervolemic hyponatremia. The low-sodium may be contributing to her subtle confusion. She has no focal neuro findings. While she has slight diminished right visual acuity compared to left, appreciate no funduscopic abnormalities, she has no ocular pain and the onset of the diminished vision is been indolent, suggesting that it is likely cataracts are no other subacute process. I spoke with patient regarding her workup results and the plan for upset admission. Patient is comfortable with this plan any family or friend will drive her to [facility] for her solar field installation crew member. I spoke with Dr. salmeron psych-hospitalist at [facility] who accepts the patient for observation for further treatment and evaluation - Data Points Laboratory Results: Laboratory Results 06/06/17 13:20 06/06/17 13:20 06/06/17 06/06/17 06/06/17 13:50 13:20 13:20 WBC 3.87 10^3/uL 10^3/uL (3.80-9.50) RBC 3.97 10^6/uL L 10^6/uL (4.18-5.33) Hgb 12.7 g/dL g/dL (12.6-16.3) Hct 35.7 % L % (38.0-47.0) MCV 89.9 fL fL (81.5-99.8) MCH 32.0 pg pg (27.9-34.1) MCHC 35.6 g/dL g/dL (32.4-36.7) RDW 12.1 % % (11.5-15.2) Plt Count 260 10^3/uL 10^3/uL (150-400) MPV 8.3 fL L fL (8.7-11.7) Neut % (Auto) 44.2 % % (39.3-74.2) Lymph % (Auto) 42.4 % % (15.0-45.0) [place] % (Auto) 10.3 % % (4.5-13.0) Eos % (Auto) 1.8 % % (0.6-7.6) Baso % (Auto) 1.0 % % (0.3-1.7) Nucleat RBC Rel Count 0.0 % % (0.0-0.2) Absolute Neuts (auto) 1.71 10^3/uL 10^3/uL (1.70-6.50) Absolute Lymphs (auto) 1.64 10^3/uL 10^3/uL (1.00-3.00) Absolute Monos (auto) 0.40 10^3/uL 10^3/uL (0.30-0.80) Absolute Eos (auto) 0.07 10^3/uL 10^3/uL (0.03-0.40) Absolute Basos (auto) 0.04 10^3/uL 10^3/uL (0.02-0.10) Absolute Nucleated RBC 0.00 10^3/uL 10^3/uL (0-0.01) Immature Gran % 0.3 % % (0.0-1.1) Immature Gran # 0.01 10^3/uL 10^3/uL (0.00-0.10) Sodium 123 mEq/L L mEq/L (134-144) Potassium 4.0 mEq/L mEq/L (3.5-5.2) Chloride 82 mEq/L L D mEq/L (97-110) Carbon Dioxide 27 mEq/l mEq/l (22-31) Anion Gap 14 mEq/L mEq/L (8-16) BUN 12 mg/dL mg/dL (7-23) Creatinine 0.7 mg/dL mg/dL (0.6-1.0) Estimated GFR > 60 Glucose 85 mg/dL mg/dL (70-100) Calcium 9.1 mg/dL mg/dL (8.5-10.4) Urine Color YELLOW Urine Appearance CLEAR Urine pH 7.0 (5.0-7.5) Ur Specific [place] <= 1.005 (1.002-1.030) Urine Protein NEGATIVE (NEGATIVE) Urine Ketones NEGATIVE (NEGATIVE) Urine Blood NEGATIVE (NEGATIVE) Urine Nitrate NEGATIVE (NEGATIVE) Urine Bilirubin NEGATIVE (NEGATIVE) Urine Urobilinogen 0.2 EU EU (0.2-1.0) Ur Leukocyte Esterase NEGATIVE (NEGATIVE) Urine Glucose NEGATIVE (NEGATIVE) Medications Given: Discontinued Medications Dexamethasone (Decadron Injection) 10 mg IVP EDNOW ONE Stop: 06/06/17 13:28 Last Admin: 06/06/17 13:36 Dose: 10 mg Diphenhydramine HCl (Benadryl Injection) 25 mg IVP EDNOW ONE Stop: 06/06/17 13:28 Last Admin: 06/06/17 13:34 Dose: 25 mg Sodium Chloride (Ns) 1,000 mls @ 0 mls/hr IV ONCE ONE; Wide Open PRN Reason: Protocol Stop: 06/06/17 13:28 Last Admin: 06/06/17 13:25 Dose: 1,000 mls Metoclopramide HCl (Reglan Injection) 5 mg IVP EDNOW ONE Stop: 06/06/17 13:29 Last Admin: 06/06/17 13:38 Dose: 5 mg Departure - Departure Disposition: [facility] Acute Clinical Impression: Hypervolemic hyponatremia, Confusion, hx of, without neuro findings Acute headache Qualifiers: Headache type: unspecified Intractability: intractable Qualified Code(s): R51 - Headache Condition: Fair
[2017-06-06 14:05] LABS: COLOR YELLOW; LEUKOCYTE ESTERASE,URINE NEGATIVE (NEGATIVE); NITRITE,URINE NEGATIVE (NEGATIVE)
[2017-06-06] MEDS ORDERED: ACETAMINOPHEN 500 MG TAB PO ONE (14:28)
[2017-06-06] MEDS ORDERED: ONDANSETRON 4 MG/2 ML VIAL IVP PRN (14:43)
[2017-06-06] MEDS ORDERED: PROMETHAZINE HCL 25 MG TAB PO PRN (14:43)
[2017-06-06] MEDS ORDERED: diphenhydrAMINE 25 MG CAP PO PRN (14:43)
[2017-06-06] MEDS ORDERED: ONDANSETRON DISINTEGRATING 4 MG TAB PO PRN (14:43)
[2017-06-06] MEDS ORDERED: ACETAMINOPHEN 500 MG TAB PO PRN (14:43)
[2017-06-06] MEDS ORDERED: PROMETHAZINE HCL 25 MG/ML INJ IVP PRN (14:43)
[2017-06-06] MEDS ORDERED: ACET/CAFFEINE/BUTA FIORICET 1 EACH TAB PO PRN (14:56)
[2017-06-06] MEDS ORDERED: SUMAtriptan 25 MG TAB PO PRN (14:56)
--- NOTE | 2017-06-06 15:00 | PDGENHP ---
History and Physical - Chief Complaint Acute headache - History of Present Illness PCP: Dr. Bang Primary Graduate Civil Engineer: Dr. Lewis HPI: 61 yo F p/w acute headache located frontally, characterized as throbbing, onset of symptoms 3 days prior, duration constant, occurring at rest, associated w/ photophobia, nausea, and acute confusion today. She attempted to alleviate her symptoms w/ OTC Rx (tylenol/ibuprofen/caffeine/benadryl) + tramadol/klonopin + cool compress and increased oral hydration, w/o significant effect. Today her confusion concerned her and she sought medical attention. She has taken her home ACEi on the morning of presentation. The dex/zofran/benadryl/ reglan/tylenol combo at urgent care alleviated the pain from a 10/10 to a 6/10. Prior to her onset of sx, patient felt hypoglycemic on 06/01, and saw her PCP on 06/02. She had not taken any antiglycemic agents, and it is unclear what caused those symptoms, but she was otherwise feeling well when she had her BMP ( sNa 133) drawn on 06/04 AM. Her headache began around noon on 06/04. History Information - Allergies/Home Medication List Allergies/Adverse Reactions: atropine sulfate [From Lomotil] Allergy (Intermediate, Verified 06/06/17 13:01) Other-Enter Comments diphenoxylate HCl [From Lomotil] Allergy (Intermediate, Verified 06/06/17 13:01) Other-Enter Comments hydromorphone HCl [From Dilaudid] Allergy (Intermediate, Verified 06/06/17 13:01 ) neck gland swelling oxcarbazepine [From Trileptal] Allergy (Intermediate, Verified 06/06/17 13:01) Other-Enter Comments Sulfa (Sulfonamide Antibiotics) Allergy (Unknown, Verified 06/06/17 13:01) Other-Enter Comments fluconazole [From Diflucan] Allergy (Verified 06/06/17 13:01) levofloxacin [From Levaquin] Allergy (Verified 06/06/17 13:01) Home Medications: Levothyroxine [Synthroid 100 mcg (*)] 09/18/16 [Last Taken 10/08/16] Lisinopril [Zestril 5 mg (*)] 09/18/16 [Last Taken 10/08/16] Venlafaxine Xr [Effexor Xr 75MG (*)] 09/18/16 [Last Taken 10/08/16] traMADol [Ultram 50 mg (*)] 09/18/16 [Last Taken 10/08/16] traZODone [traZODone 150MG (*)] 09/18/16 [Last Taken 10/07/16] Apixaban [Eliquis] 10/08/16 [Last Taken 10/08/16 06:30 5 MG] PRILOSEC 05/28/17 [Last Taken Unknown] KLONOPIN 06/06/17 [Last Taken Unknown] Ondansetron 06/06/17 [Last Taken Unknown] Vitamin B12 06/06/17 [Last Taken Unknown] I have personally reviewed and updated: family history, medical history, social history, surgical history - Past Medical History DVT, hypertension, pulmonary embolism, psychiatric history (anxiety/depression) Additional medical history: Cervical radiculopathy, C5-C7. Functional hypothyroidism s/p hot nodule resection. anxiety/depression. hypertension. microscopic colitis. prior headache which responded to triptan. chronic hyponatremia (baseline 127-133) - Surgical History Additional surgical history: thyroid nodule resection. ectopic - Family History Additional family history: M: at 66 from acute pulmonary embolism. F: CAD, ETOH abuse - Social History Smoking Status: Former smoker Alcohol Use: Sober (Sober for 9 years) Drug Use: None Additional social history: Patient lives with her , retired classical music negro; originally from [place]. Review of Systems Review of Systems: ROS: 10pt was reviewed & negative except for what was stated in HPI & below Gastrointestinal: Reports: nausea Neurological: Reports: other (confusion, headache) Physical Exam Physical Exam: Temp Pulse Resp BP Pulse Ox 36.7 C 62 16 174/84 H 94 06/06/17 12:56 06/06/17 14:10 06/06/17 14:10 06/06/17 14:10 06/06/17 14:10 Constitutional: no apparent distress, appears nourished, not in pain, uncomfortable Eyes: PERRL, anicteric sclera, EOMI Ears, Nose, Mouth, Throat: moist mucous membranes, hearing normal, ears appear normal, no oral mucosal ulcers Cardiovascular: regular rate and rhythym, systolic murmur (II/ systolic at sternum), No edema Respiratory: no respiratory distress, no rales or rhonchi, clear to auscultation Gastrointestinal: normoactive bowel sounds, soft, non-tender abdomen, no palpable masses, No guarding, No distension Skin: warm, normal color, no rashes or abrasions, no fluctuance, no induration, No mottled Neurologic: AAOx3, sensation intact bilaterally, CN II-XII Intact, No weakness Psychiatric: interacting appropriately, not anxious, not encephalopathic, thought process linear Lab Data & Imaging Review 06/06/17 13:20 06/06/17 13:20 WBC 3.87 10^3/uL (3.80-9.50) 06/06/17 13:20 RBC 3.97 10^6/uL (4.18-5.33) L 06/06/17 13:20 Hgb 12.7 g/dL (12.6-16.3) 06/06/17 13:20 Hct 35.7 % (38.0-47.0) L 06/06/17 13:20 MCV 89.9 fL (81.5-99.8) 06/06/17 13:20 MCH 32.0 pg (27.9-34.1) 06/06/17 13:20 MCHC 35.6 g/dL (32.4-36.7) 06/06/17 13:20 RDW 12.1 % (11.5-15.2) 06/06/17 13:20 Plt Count 260 10^3/uL (150-400) 06/06/17 13:20 MPV 8.3 fL (8.7-11.7) L 06/06/17 13:20 Neut % (Auto) 44.2 % (39.3-74.2) 06/06/17 13:20 Lymph % (Auto) 42.4 % (15.0-45.0) 06/06/17 13:20 [place] % (Auto) 10.3 % (4.5-13.0) 06/06/17 13:20 Eos % (Auto) 1.8 % (0.6-7.6) 06/06/17 13:20 Baso % (Auto) 1.0 % (0.3-1.7) 06/06/17 13:20 Nucleat RBC Rel Count 0.0 % (0.0-0.2) 06/06/17 13:20 Absolute Neuts (auto) 1.71 10^3/uL (1.70-6.50) 06/06/17 13:20 Absolute Lymphs (auto) 1.64 10^3/uL (1.00-3.00) 06/06/17 13:20 Absolute Monos (auto) 0.40 10^3/uL (0.30-0.80) 06/06/17 13:20 Absolute Eos (auto) 0.07 10^3/uL (0.03-0.40) 06/06/17 13:20 Absolute Basos (auto) 0.04 10^3/uL (0.02-0.10) 06/06/17 13:20 Absolute Nucleated RBC 0.00 10^3/uL (0-0.01) 06/06/17 13:20 Immature Gran % 0.3 % (0.0-1.1) 06/06/17 13:20 Immature Gran # 0.01 10^3/uL (0.00-0.10) 06/06/17 13:20 Sodium 123 mEq/L (134-144) L 06/06/17 13:20 Potassium 4.0 mEq/L (3.5-5.2) 06/06/17 13:20 Chloride 82 mEq/L (97-110) L D 06/06/17 13:20 Carbon Dioxide 27 mEq/l (22-31) 06/06/17 13:20 Anion Gap 14 mEq/L (8-16) 06/06/17 13:20 BUN 12 mg/dL (7-23) 06/06/17 13:20 Creatinine 0.7 mg/dL (0.6-1.0) 06/06/17 13:20 Estimated GFR > 60 06/06/17 13:20 Glucose 85 mg/dL (70-100) 06/06/17 13:20 Calcium 9.1 mg/dL (8.5-10.4) 06/06/17 13:20 Urine Color YELLOW 06/06/17 13:50 Urine Appearance CLEAR 06/06/17 13:50 Urine pH 7.0 (5.0-7.5) 06/06/17 13:50 Ur Specific [place] <= 1.005 (1.002-1.030) 06/06/17 13:50 Urine Protein NEGATIVE (NEGATIVE) 06/06/17 13:50 Urine Ketones NEGATIVE (NEGATIVE) 06/06/17 13:50 Urine Blood NEGATIVE (NEGATIVE) 06/06/17 13:50 Urine Nitrate NEGATIVE (NEGATIVE) 06/06/17 13:50 Urine Bilirubin NEGATIVE (NEGATIVE) 06/06/17 13:50 Urine Urobilinogen 0.2 EU (0.2-1.0) 06/06/17 13:50 Ur Leukocyte Esterase NEGATIVE (NEGATIVE) 06/06/17 13:50 Urine Glucose NEGATIVE (NEGATIVE) 06/06/17 13:50 Visualized and Interpreted imaging results: Yes Interpretation: Head CT w/o hemorrhage, otherwise normal Assessment & Plan Assessment: 61 yo F p/w acute on chronic hyponatremia in setting of acute headache Plan: # Hyponatremia. Acute on chronic, new problem to this provider, further w/u indicated. Suspect this is acute worsening 2/2 increased free water intake in the setting of attempting to tx headache w/ hydration during the past 3 days, resulting in a hypervolemic hyponatremia - get Benigno, sOsms, uOsms - monitor sNa q4hrs until stabilized - place on 1.5L fluid restriction - if level is worsening or mental status changes, may need to upgrade to SDU and more freq sNa monitoring - patient will require counseling in AM regarding solute containing liquids moving forward, as she already believes she is ingesting electrolyte containing fluids, and she is trying low salt/diabetic diet given her HTN/pre-DM # Headache. Acute, likely migrainous, no ICH on HCT - d/w Dr. Booker, he reports patient's pain has improved w/ dex/reglan/ benadryl/tylenol at - will continue w/ non-narcotic tx modalities including phenergan, zofran, tylenol, benadryl, sumatriptan, fioricet PRN - avoid adding narcotics if possible, no indication for additional steroids # Hx DVT and PE. Reviewed outside records including 05/28/[address] Durga Parks indicating no RLE DVT - cont home eliquis - currently no e/o bleeding # HTN. Chronic, acute rise 2/2 pain, cont home ACEi - if sNa not improving, consider adjusting to a different class of Rx - patient prescribed HCTZ/K several weeks ago and has been off this for 1 week, would NOT recommend restarting, rec amlodipine if additional agent needed Diet. Regular, 1.5L/day restriction PPx. High risk, on eliquis Code. Full Dispo. ADD 06/07, pending stabilization of serum sodium; if worsening, will require additional w/u and tx, will upgrade to INPT status at that time.
[2017-06-06] MEDS ORDERED: NON-FORMULARY NEW DRUG (Omeprazole [Omeprazole] 40 MG) PO PRN (17:10)
[2017-06-06] MEDS ORDERED: clonazePAM 0.5 MG TAB PO PRN (17:10)
[2017-06-06 18:39] LABS: ANION GAP 12 mEq/L (8-16); CALCIUM 9.5 mg/dL (8.5-10.4); CARBON DIOXIDE 23 mEq/l (22-31); CHLORIDE 93 mEq/L (97-110); CREATININE 0.7 mg/dL (0.6-1.0); GLOMERULAR FILTRATION RATE > 60; GLUCOSE 172 mg/dL (70-100); SODIUM 128 mEq/L (134-144)
[2017-06-06] MEDS: APIXABAN 5 MG TAB PO SCH (21:18)
[2017-06-06] MEDS: traMADol 50 MG TAB PO SCH (21:19)
[2017-06-06 22:56] LABS: ANION GAP 10 mEq/L (8-16); CALCIUM 9.1 mg/dL (8.5-10.4); CARBON DIOXIDE 24 mEq/l (22-31); CHLORIDE 96 mEq/L (97-110); CREATININE 0.7 mg/dL (0.6-1.0); GLOMERULAR FILTRATION RATE > 60; GLUCOSE 137 mg/dL (70-100); SODIUM 130 mEq/L (134-144)
[2017-06-07 05:10] LABS: ADD DIFF? NO; ADD MORPH? NO; ADD SCAN? NO; ATYPICAL LYMPHOCYTE FLAG 0 (0-99); FRAGMENT RBC FLAG 0 (0-99); HEMATOCRIT 38.7 % (38.0-47.0); HEMOGLOBIN 13.5 g/dL (12.6-16.3); LEFT SHIFT FLG 0 (0-99); LIPEMIA HEMOLYSIS FLAG 90 (0-99); MEAN CELL HEMOGLOBIN 31.4 pg (27.9-34.1); MEAN CELL HEMOGLOBIN CONCENTR. 34.9 g/dL (32.4-36.7); MEAN PLATELET VOLUME 8.5 fL (8.7-11.7); PLATELET CLUMPS FLAG 0 (0-99); PLATELET COUNT 268 10^3/uL (150-400); RED CELL DISTRIBUTION WIDTH 12.2 % (11.5-15.2)
[2017-06-07 05:32] LABS: ANION GAP 10 mEq/L (8-16); CALCIUM 9.6 mg/dL (8.5-10.4); CARBON DIOXIDE 28 mEq/l (22-31); CHLORIDE 97 mEq/L (97-110); CREATININE 0.7 mg/dL (0.6-1.0); GLOMERULAR FILTRATION RATE > 60; GLUCOSE 131 mg/dL (70-100); POTASSIUM 3.8 mEq/L (3.5-5.2); SODIUM 135 mEq/L (134-144)
[2017-06-07] MEDS ORDERED: LEVOTHYROXINE 100 MCG TAB PO SCH (06:00)
[2017-06-07] MEDS: PANTOPRAZOLE SODIUM 40 MG TAB PO SCH ×2 (06:40→08:42)
[2017-06-07 07:30] VITALS: BP 156/83; PULSE 65; RESP 18; TEMP 98.2; O2SAT 94
[2017-06-07] MEDS: traMADol 50 MG TAB PO SCH (08:40)
[2017-06-07] MEDS: APIXABAN 5 MG TAB PO SCH (08:40)
[2017-06-07] MEDS ORDERED: VENLAFAXINE XR 75 MG CAP PO SCH (09:00)
[2017-06-07] MEDS ORDERED: LISINOPRIL 20 MG TAB PO SCH (09:00)
[2017-06-07] MEDS ORDERED: PNEUMOCOCCAL 0.5ML VACCINE VIAL IM ONE (09:49)
--- NOTE | 2017-06-07 11:47 | ASDISCHSUM ---
Discharge Information Plan Status:Home with No Needs Medically Cleared to Leave: Discharge Date:06/07/2017 11:42 AM CM D/C Disposition:Home, Routine, Self-Care ADT D/C Disposition:Home, Routine, Self-Care Projected Discharge Date:06/07/2017 11:42 AM Transportation at D/C: Discharge Delay Reason: Follow-Up Date:06/07/2017 11:42 AM Discharge Slot: Final Diagnosis: Placement Information Patient Contact Information Contact Name:CHRISTIANO Relationship: Address:[address] City:[facility] Phone: [facility] Code:[place] [address] Email: Financial Information Financial Class:HMO and PPO Plans Primary Plan Desc: OUT OF STATE PPO Primary Plan Number:[id number] Secondary Plan Desc: Secondary Plan Number: Assessment Information [facility] CM Progress Note CM Note CM Note Notes: Pt medically stable for d/c, no CM d/c needs identified. Date Signed: 06/07/2017 11:46 AM Electronically Signed By:JUAN Whitman Intervention Information
--- NOTE | 2017-06-08 03:14 | GDS ---
[f rep st] DISCHARGE SUMMARY DISCHARGE DIAGNOSES: Include: 1. Acute hypervolemic hyponatremia. 2. Acute migraine headache. 3. Hypertension. 4. Prediabetes. HISTORY OF PRESENT ILLNESS: This is a 61-year-old female, who presented to the emergency department with complaints of headache. For details of patient's initial presentation, please see the history a nd physical dated 06/06/2017. CONSULTATIVE SERVICES: None. PROCEDURES: None. HOSPITAL COURSE: By issue: 1. Acute hyponatremia. Patient had recently been started on hydrochlorothiazide which she reports s he had stopped in the week preceding this presentation. The patient reports having sudden onset of a headache that had preceded her presentation to the ER by approximately 3 days. She attempted very a ggressive hydration to treat her headache and when she presented to the emergency department and was found to have a sodium lower than her baselines in the high 120s. Her laboratory data was sent to [facility] hypervolemic hyponatremia. Patient was placed on fluid restriction and had normalization of he r sodium overnight. The patient is being discharged off hydrochlorothiazide with recommendations for a 2 L fluid restriction to continue for the week post discharge until she is seen by her primary car e physician. The patient does have a history of electrolyte abnormalities. In the past, understands clearly the purpose of the fluid restriction, and clearly able to restate the importance of not usin g hydrochlorothiazide after discharge. Patient will see her PCP in 1 week's time for a blood pressur e check and BMP check. 2. Hypertension. We discontinued the patient's hydrochlorothiazide. Her blood pressures were rangi ng in the 130s to 140. I explained very clearly that I did not want to add a new medication at [facility] at this time just simply muddy the fields of her clinical diagnosis. The patient is to see her primary care provider in 1 week's time at which time, I suspect she will likely be started on a calci um channel edgar, in addition to her WESLEY inhibitor for ongoing management of her hypertension. 3. Migraine headache. The patient underwent abortive therapy in the emergency department with good results. She will again follow with her primary care provider to discuss ongoing management of migra ine headaches. The patient does report a previous history of migraines in the past. Certainly withi n the realm of possibility that she is representing with 1 during this hospital stay. MEDICATIONS AT THE TIME OF TRANSFER: Please reference to med rec printed on 06/07/2017. FOLLOWUP APPOINTMENTS: For this patient include with her PCP in 1 week's time for blood pressure and lab check. PENDING STUDIES: At the time of this dictation are none. TIME SPENT: I spent greater than 30 minutes in the planning and coordination of this discharge. /[id number]/MODL
== END 2017-06-07 11:42 | disposition home or self-care (01) ==
LOC: CED 12:48 → CEDHOLD 14:48 → F3N 16:05
PROVIDERS: ADMIT Internal Medicine; ATTEND Internal Medicine
DX: E87.1 Hypo-osmolality and hyponatremia (principal); G43.909 Migraine, unspecified, not intractable, without status migrainosus; I10 Essential (primary) hypertension; R73.03 Prediabetes
CPT/HCPCS: 70450; 90471; 92523; G0378; 80048-PO; 81003-PO; 85025-PO; 96374; G0009; J1100; J1200; J2765